=== PATIENT | female | born 2000 | race Caucasian/White ===

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

== ENCOUNTER 2019-03-29 09:52 | Emergency (ER) | payer MEDICAID, OTHER ==
[2019-03-29] MEDS ORDERED: SODIUM CHLORIDE 0.9% 1,000 ML IV STA (10:20)
[2019-03-29] MEDS: ONDANSETRON 4 MG/2 ML VIAL IVP STA ×2 (10:48→10:49)
[2019-03-29 10:56] LABS: Basophils % (A) 0 %; Eosinophils # (A) 0.3 k/uL (0-0.7); Eosinophils % (A) 3 %; HCT 41.2 % (34.0-46.0); HGB 12.8 gm/dL (11.4-16.0); Lymphocytes % (A) 19 %; MCH 27.4 pg (25.0-35.0); MCHC 31.1 g/dL (31.0-37.0); MCV 88.1 fL (80.0-100.0); Mean Platelet Volume 6.9; Monocytes # (A) 0.4 k/uL (0-1.0); Monocytes % (A) 4 %; Neutrophils # (A) 7.7 k/uL (1.3-7.7); Neutrophils % (A) 74 %; Platelet Count 280 k/uL (150-450); RBC 4.68 m/uL (3.80-5.40); RDW 13.1 % (11.5-15.5); WBC 10.5 k/uL (4.0-11.0)
[2019-03-29 11:07] LABS: ALT 20 U/L (9-52); AST 22 U/L (14-36); African American GFR (CKD) >90 (>60 ml/min/1.73 sqM); Albumin 4.5 g/dL (3.5-5.0); Alkaline Phosphatase 85 U/L (38-126); Anion Gap 10 mmol/L; Blood Urea Nitrogen 13 mg/dL (7-17); Calcium 9.8 mg/dL (8.4-10.2); Carbon Dioxide 27 mmol/L (22-30); Chloride 102 mmol/L (98-107); Glucose 112 mg/dL (74-99); Lithium 0.6 mmol/L; Potassium 4.3 mmol/L (3.5-5.1); Sodium 139 mmol/L (137-145); Total Bilirubin 0.1 mg/dL (0.2-1.3); Total Protein 7.8 g/dL (6.3-8.2)
[2019-03-29 11:11] LABS: Appearance,Urine Cloudy (Clear); Bilirubin,Urine 2+ (Negative); Blood,Urine Negative (Negative); Color,Urine Dark Brown; Glucose,Urine (UA) Negative (Negative); Ketones,Urine Negative (Negative); Leukocyte Esterase,Urine Negative (Negative); Mucus,Urine Moderate /hpf; Nitrite,Urine Positive (Negative); PH, Urine 5.5 (5.0-8.0); Protein,Urine Trace (Negative); RBC,Urine 1 /hpf (0-5); Specific Gravity,Urine 1.025 (1.001-1.035); Squamous Epithelial Cell,Urine 14 /hpf (0-4); WBC,Urine 7 /hpf (0-5)
--- NOTE | 2019-03-29 11:45 | ED ---
General Adult HPI - General Chief complaint: Nausea/Vomiting/Diarrhea Stated complaint: ABDOMINAL PAIN, VOMTING Source: patient Mode of arrival: ambulatory Limitations: no limitations - History of Present Illness Initial comments: The patient is a 18-year-old female past medical history bipolar disorder presents emergency room with reported nausea. She states she's had intermittent nausea for the past year. She has never been seen for it. She does think he may be secondary to her medications. States that every time she takes her lithium she does feel nauseated. She will occasionally have vomiting. States that she vomits approximately one per month. She does not take anything for her nausea. Denies any sick contacts or recent travel. No associated fevers or chills. Denies any associated abdominal pain. No hematemesis. Denies changes in her urination to include dysuria, hematuria or difficulty voiding. Denies any changes in her bowel movements including diarrhea, constipation, melanotic stools or hematochezia. Last her lithium was checked was 1 year ago. Denies any headaches or visual changes. There are no other alleviating, precipitating or modifying factors - Related Data Home Medications Medication Instructions Recorded Confirmed [place] Carbonate [[place] 300 mg PO HS 12/11/17 12/11/17 Carbonate ER] QUEtiapine [SEROquel] 50 mg PO HS 12/11/17 12/11/17 Previous Rx's Medication Instructions Recorded Cephalexin [Keflex] 500 mg PO Q12HR #14 cap 03/29/19 Ondansetron Odt [Zofran Odt] 4 mg PO Q8HR PRN #10 tab 03/29/19 Allergies Allergy/AdvReac Type Severity Reaction Status Date / Time No Known Allergies Allergy Verified 03/29/19 10:09 Review of Systems ROS Statement: Those systems with pertinent positive or pertinent negative responses have been documented in the HPI. ROS Other: All systems not noted in ROS Statement are negative. Past Medical History Past Medical History: No Reported History History of Any Multi-Drug Resistant Organisms: None Reported Past Surgical History: No Surgical Hx Reported Past Anesthesia/Blood Transfusion Reactions: No Reported Reaction Past Psychological History: ADD/ADHD, Bipolar Smoking Status: Never smoker Past Alcohol Use History: None Reported Past Drug Use History: None Reported - Past Family History Mother History Unknown: Yes General Exam Limitations: no limitations Course Vital Signs 03/29/19 03/29/19 10:07 11:56 Temperature 98.0 F 97.8 F Pulse Rate 76 69 Respiratory 18 16 Rate Blood Pressure 106/61 114/69 O2 Sat by Pulse 98 100 Oximetry Medical Decision Making - Medical Decision Making Upon arrival the patient is placed in room 20. A thorough history and physical exam was performed. Peripheral IV was established. The patient was given a liter bolus of normal saline. I did offer the patient something for nausea however she refuses stating she isn't nauseated at this time. Laboratory studies were conducted. CBC is unremarkable. CMP shows a glucose of 112. Urinalysis shows trace protein, positive nitrates, 2+ bilirubin, 7 white blood cells and moderate mucus. The patient does report UTI symptoms and states she is currently on an antibiotic from urgent care for urinary tract infection. She is unsure which medication it is. States she is on day 5 of 7. [place] level is therapeutic at 0.6. I did offer a KUB or a CT of the patient's abdomen and pelvis per patient refused. I discussed diagnosis, differential and treatment options. At this time the patient will be given a prescription for Keflex. She's take medications as directed for urinary tract infection. She is to follow up with the GI physician for evaluation of her chronic nausea. I also provided her with information for a primary care doctor. She'll be discharged home. If she has any new or worsening symptoms she should return to the emergency room. The patient was discharged home in stable condition - Lab Data Result diagrams: 03/29/19 10:44 03/29/19 10:44 Lab Results 03/29/19 03/29/19 03/29/19 Range/Units 10:44 10:44 10:51 WBC 10.5 (4.0-11.0) k/uL RBC 4.68 (3.80-5.40) m/uL Hgb 12.8 (11.4-16.0) gm/dL Hct 41.2 (34.0-46.0) % MCV 88.1 (80.0-100.0) fL MCH 27.4 (25.0-35.0) pg MCHC 31.1 (31.0-37.0) g/dL RDW 13.1 (11.5-15.5) % Plt Count 280 (150-450) k/uL Neutrophils % 74 % Lymphocytes % 19 % Monocytes % 4 % Eosinophils % 3 % Basophils % 0 % Neutrophils # 7.7 (1.3-7.7) k/uL Lymphocytes # 2.0 (1.0-4.8) k/uL Monocytes # 0.4 (0-1.0) k/uL Eosinophils # 0.3 (0-0.7) k/uL Basophils # 0.0 (0-0.2) k/uL Sodium 139 (137-145) mmol/L Potassium 4.3 (3.5-5.1) mmol/L Chloride 102 (98-107) mmol/L Carbon Dioxide 27 (22-30) mmol/L Anion Gap 10 mmol/L BUN 13 (7-17) mg/dL Creatinine 0.84 (0.52-1.04) mg/dL Est GFR (CKD-EPI)AfAm >90 (>60 ml/min/1.73 sqM) Est GFR (CKD-EPI)NonAf >90 (>60 ml/min/1.73 sqM) Glucose 112 H (74-99) mg/dL Calcium 9.8 (8.4-10.2) mg/dL Total Bilirubin 0.1 L (0.2-1.3) mg/dL AST 22 (14-36) U/L ALT 20 (9-52) U/L Alkaline Phosphatase 85 (38-126) U/L Total Protein 7.8 (6.3-8.2) g/dL Albumin 4.5 (3.5-5.0) g/dL Lipase 59 (23-300) U/L TSH 3.170 (0.465-4.680) mIU/L Urine Color Dark Brown Urine Appearance Cloudy H (Clear) Urine pH 5.5 (5.0-8.0) Ur Specific [place] 1.025 (1.001-1.035) Urine Protein Trace H (Negative) Urine Glucose (UA) Negative (Negative) Urine Ketones Negative (Negative) Urine Blood Negative (Negative) Urine Nitrite Positive H (Negative) Urine Bilirubin 2+ H (Negative) Urine Urobilinogen 8.0 (<2.0) mg/dL Ur Leukocyte Esterase Negative (Negative) Urine RBC 1 (0-5) /hpf Urine WBC 7 H (0-5) /hpf Ur Squamous Epith Cells 14 H (0-4) /hpf Urine Mucus Moderate H (None) /hpf Urine HCG, Qual (Not Detectd) [place] 0.6 mmol/L 03/29/19 Range/Units 10:51 WBC (4.0-11.0) k/uL RBC (3.80-5.40) m/uL Hgb (11.4-16.0) gm/dL Hct (34.0-46.0) % MCV (80.0-100.0) fL MCH (25.0-35.0) pg MCHC (31.0-37.0) g/dL RDW (11.5-15.5) % Plt Count (150-450) k/uL Neutrophils % % Lymphocytes % % Monocytes % % Eosinophils % % Basophils % % Neutrophils # (1.3-7.7) k/uL Lymphocytes # (1.0-4.8) k/uL Monocytes # (0-1.0) k/uL Eosinophils # (0-0.7) k/uL Basophils # (0-0.2) k/uL Sodium (137-145) mmol/L Potassium (3.5-5.1) mmol/L Chloride (98-107) mmol/L Carbon Dioxide (22-30) mmol/L Anion Gap mmol/L BUN (7-17) mg/dL Creatinine (0.52-1.04) mg/dL Est GFR (CKD-EPI)AfAm (>60 ml/min/1.73 sqM) Est GFR (CKD-EPI)NonAf (>60 ml/min/1.73 sqM) Glucose (74-99) mg/dL Calcium (8.4-10.2) mg/dL Total Bilirubin (0.2-1.3) mg/dL AST (14-36) U/L ALT (9-52) U/L Alkaline Phosphatase (38-126) U/L Total Protein (6.3-8.2) g/dL Albumin (3.5-5.0) g/dL Lipase (23-300) U/L TSH (0.465-4.680) mIU/L Urine Color Urine Appearance (Clear) Urine pH (5.0-8.0) Ur Specific [place] (1.001-1.035) Urine Protein (Negative) Urine Glucose (UA) (Negative) Urine Ketones (Negative) Urine Blood (Negative) Urine Nitrite (Negative) Urine Bilirubin (Negative) Urine Urobilinogen (<2.0) mg/dL Ur Leukocyte Esterase (Negative) Urine RBC (0-5) /hpf Urine WBC (0-5) /hpf Ur Squamous Epith Cells (0-4) /hpf Urine Mucus (None) /hpf Urine HCG, Qual Not Detected (Not Detectd) [place] mmol/L Disposition Clinical Impression: Nausea, Acute urinary tract infection Disposition: HOME SELF-CARE Condition: Stable Instructions (If sedation given, give patient instructions): Urinary Tract Infection in Women (ED), Acute Nausea and Vomiting (ED) Additional Instructions: Please follow-up with the primary care doctor in 2-4 days. Return to the emergency room for any new or worsening symptoms Prescriptions: Cephalexin [Keflex] 500 mg PO Q12HR #14 cap Ondansetron Odt [Zofran Odt] 4 mg PO Q8HR PRN #10 tab PRN Reason: Nausea Is patient prescribed a controlled substance at d/c from ED?: No Referrals: None,Stated [Primary Care Provider] - 1-2 days Ziggy Puente MD [Medical Doctor] - 1-2 days Liane Glaser MD [STAFF PHYSICIAN] - 1-2 days Time of Disposition: 11:45
[2019-03-29 11:58] VITALS: BP 114/69; PULSE 69; RESP 16; TEMP 97.8
== END 2019-03-29 11:58 | disposition home or self-care (01) ==
LOC: EC 09:52
DX: N39.0 Urinary tract infection, site not specified (principal); Z32.02 Encounter for pregnancy test, result negative; F31.9 Bipolar disorder, unspecified; Z79.899 Other long term (current) drug therapy
CPT/HCPCS: 36415; 80053; 80178; 81001; 81025; 83690; 84443; 85025; 96360; 99284

== ENCOUNTER 2019-05-29 16:34 | Observation (INO) | payer MEDICAID, OTHER ==
[2019-05-29] MEDS ORDERED: SODIUM CHLORIDE 0.9% 2,000 ML IV STA (16:48)
[2019-05-29] MEDS ORDERED: METOCLOPRAMIDE 5 MG/ML 2 ML VIAL IVP STA (16:51)
[2019-05-29] MEDS ORDERED: PEG 3350-NA SULF,BICARB,CL/KCL 4,000 ML BOTTLE PO ONE (17:06)
--- NOTE | 2019-05-29 17:11 | ED ---
Overdose HPI - General Chief Complaint: Overdose Stated Complaint: overdose Time Seen by Provider: 05/29/19 16:35 Source: EMS Mode of arrival: EMS Limitations: no limitations - History of Present Illness Initial Comments: The patient is a 18 old female with past medical history of bipolar disorder presents to the emergency room with acute overdose. The patient's mom is at bedside and helps provide history. She states that she got a text around 3:50 pm from her daughter stating that she had taken 28 tablets of lithium carbonate 300 mg. The patient took these in an attempt to harm herself. She does have a history of multiple inpatient hospitalizations. Previously overdosed on Abilify however no longer takes this medication. The patient's denies ingestion of any other prescribed medications or gsck-nwe-weozbuf medications. She does admit to nausea without vomiting. Denies headaches or visual changes. No chest pain or shortness of breath. Denies any abdominal pain. No concern for . Denies any homicidal ideations or hallucinations. There are no other alleviating, precipitating or modifying factors - Related Data Home Medications Medication Instructions Recorded Confirmed [place] Carbonate [[place] 300 mg PO HS 12/11/17 05/29/19 Carbonate ER] Allergies Allergy/AdvReac Type Severity Reaction Status Date / Time No Known Allergies Allergy Verified 05/29/19 19:07 Review of Systems ROS Statement: Those systems with pertinent positive or pertinent negative responses have been documented in the HPI. ROS Other: All systems not noted in ROS Statement are negative. Past Medical History Past Medical History: No Reported History Additional Past Medical History / Comment(s): prior overdose History of Any Multi-Drug Resistant Organisms: None Reported Past Surgical History: No Surgical Hx Reported Past Anesthesia/Blood Transfusion Reactions: No Reported Reaction Past Psychological History: ADD/ADHD, Bipolar Smoking Status: Never smoker Past Alcohol Use History: Occasional Past Drug Use History: Marijuana - Past Family History Mother History Unknown: Yes General Exam Limitations: no limitations General appearance: alert, in no apparent distress Head exam: Present: atraumatic, normocephalic, normal inspection Eye exam: Present: normal appearance, PERRL, EOMI. Absent: scleral icterus, conjunctival injection, periorbital swelling ENT exam: Present: normal exam, mucous membranes moist Neck exam: Present: normal inspection. Absent: tenderness, meningismus, lymphadenopathy Respiratory exam: Present: normal lung sounds bilaterally. Absent: respiratory distress, wheezes, rales, rhonchi, stridor Cardiovascular Exam: Present: regular rate, normal rhythm, normal heart sounds. Absent: systolic murmur, diastolic murmur, rubs, gallop, clicks GI/Abdominal exam: Present: soft, normal bowel sounds. Absent: distended, tenderness, guarding, rebound, rigid Extremities exam: Present: normal inspection, full ROM, normal capillary refill. Absent: tenderness, pedal edema, joint swelling, calf tenderness Back exam: Present: normal inspection Neurological exam: Present: alert, oriented X3, CN II-XII intact Psychiatric exam: Present: depressed Skin exam: Present: warm, dry, intact, normal color. Absent: rash Course Vital Signs 05/29/19 05/29/19 05/29/19 16:36 18:07 18:44 Temperature 98.8 F Pulse Rate 94 75 78 Respiratory 20 18 18 Rate Blood Pressure 136/83 116/78 123/70 O2 Sat by Pulse 96 100 98 Oximetry Medical Decision Making - Medical Decision Making Upon arrival the patient is placed into room 2. A thorough history and physical exam is performed. Peripheral IV was established the patient was given a 2 L bolus of normal saline. She is also given 10 mg of Reglan for nausea. A 12- lead EKG was performed. Laboratory studies were conducted. CBC is unremarkable. CMP shows a glucose of 104 and a calcium of 10.3. UA shows 1+ ketones. HCG is negative. UDS is negative. [place] is 1.1. Salicylates and acetaminophen are negative. I discussed the results with the patient. She does have a couple episodes of emesis. We did call poison control who recommended EKGs every 6 hours, lites and lithium levels every 4 hours. He also recommended GoLYTELY. I did order the medication the patient is able to start drinking it. The patient will be admitted to the hospital. I will consult psychiatry for evaluation when she is medically clear. A call discuss the case with Faiza from [facility] who accepted admission. She remained alert in the exam room. No sign of seizures or sedation. Patient was then transferred to floor in stable condition - Lab Data Result diagrams: 05/30/19 04:00 05/31/19 06:42 Lab Results 05/29/19 05/29/19 Range/Units 16:55 16:55 WBC 7.6 (4.0-11.0) k/uL RBC 4.88 (3.80-5.40) m/uL Hgb 13.7 (11.4-16.0) gm/dL Hct 41.2 (34.0-46.0) % MCV 84.4 (80.0-100.0) fL MCH 28.2 (25.0-35.0) pg MCHC 33.4 (31.0-37.0) g/dL RDW 13.2 (11.5-15.5) % Plt Count 275 (150-450) k/uL Neutrophils % 58 % Lymphocytes % 32 % Monocytes % 5 % Eosinophils % 3 % Basophils % 0 % Neutrophils # 4.5 (1.3-7.7) k/uL Lymphocytes # 2.4 (1.0-4.8) k/uL Monocytes # 0.4 (0-1.0) k/uL Eosinophils # 0.2 (0-0.7) k/uL Basophils # 0.0 (0-0.2) k/uL Sodium 138 (137-145) mmol/L Potassium 4.3 (3.5-5.1) mmol/L Chloride 107 (98-107) mmol/L Carbon Dioxide 21 L (22-30) mmol/L Anion Gap 10 mmol/L BUN 10 (7-17) mg/dL Creatinine 0.60 (0.52-1.04) mg/dL Est GFR (CKD-EPI)AfAm >90 (>60 ml/min/1.73 sqM) Est GFR (CKD-EPI)NonAf >90 (>60 ml/min/1.73 sqM) Glucose 104 H (74-99) mg/dL Calcium 10.3 H (8.4-10.2) mg/dL Phosphorus 3.4 (2.5-4.5) mg/dL Magnesium 1.9 (1.6-2.3) mg/dL Total Bilirubin 0.5 (0.2-1.3) mg/dL AST 39 H (14-36) U/L ALT 33 (4-34) U/L Alkaline Phosphatase 72 (38-126) U/L Creatine Kinase 115 (30-135) U/L Total Protein 8.0 (6.3-8.2) g/dL Albumin 4.8 (3.5-5.0) g/dL TSH 2.630 (0.465-4.680) mIU/L Salicylates <1.0 mg/dL Acetaminophen <10.0 ug/mL [place] 1.1 mmol/L - EKG Data EKG Comments: EKG demonstrates a normal sinus rhythm with a ventricular rate of 83. RI interval 1:30. QRS E4. QTC of 434. No acute ST segment elevations or depressions concerning for ischemic change. No widened QRS Disposition Clinical Impression: Intentional lithium overdose, Suicide attempt, Depression Disposition: ADMITTED IP TO THIS HOSP Condition: Stable Is patient prescribed a controlled substance at d/c from ED?: No Decision to Admit Reason: Admit from EC Decision Date: 05/29/19 Decision Time: 18:07
[2019-05-29 17:32] LABS: ALT 33 U/L (4-34); AST 39 U/L (14-36); Acetaminophen <10.0 ug/mL; African American GFR (CKD) >90 (>60 ml/min/1.73 sqM); Albumin 4.8 g/dL (3.5-5.0); Alkaline Phosphatase 72 U/L (38-126); Anion Gap 10 mmol/L; Blood Urea Nitrogen 10 mg/dL (7-17); Calcium 10.3 mg/dL (8.4-10.2); Carbon Dioxide 21 mmol/L (22-30); Chloride 107 mmol/L (98-107); Creatine Kinase 115 U/L (30-135); Glucose 104 mg/dL (74-99); Lithium 1.1 mmol/L; Magnesium 1.9 mg/dL (1.6-2.3); Non-African American GFR(CKD) >90 (>60 ml/min/1.73 sqM); Phosphorus 3.4 mg/dL (2.5-4.5); Potassium 4.3 mmol/L (3.5-5.1); Salicylate <1.0 mg/dL; Sodium 138 mmol/L (137-145); Total Bilirubin 0.5 mg/dL (0.2-1.3)
[2019-05-29 17:39] LABS: Basophils % (A) 0 %; Eosinophils # (A) 0.2 k/uL (0-0.7); Eosinophils % (A) 3 %; HCT 41.2 % (34.0-46.0); HGB 13.7 gm/dL (11.4-16.0); Lymphocytes # (A) 2.4 k/uL (1.0-4.8); Lymphocytes % (A) 32 %; MCH 28.2 pg (25.0-35.0); MCHC 33.4 g/dL (31.0-37.0); MCV 84.4 fL (80.0-100.0); Monocytes # (A) 0.4 k/uL (0-1.0); Monocytes % (A) 5 %; Neutrophils # (A) 4.5 k/uL (1.3-7.7); Neutrophils % (A) 58 %; Platelet Count 275 k/uL (150-450); RBC 4.88 m/uL (3.80-5.40); RDW 13.2 % (11.5-15.5); WBC 7.6 k/uL (4.0-11.0)
[2019-05-29] MEDS ORDERED: NALOXONE 0.4 MG/ML 1 ML VIAL IV PRN (18:08)
[2019-05-29 18:46] LABS: Appearance,Urine Clear (Clear); Bilirubin,Urine Negative (Negative); Blood,Urine Negative (Negative); Color,Urine Yellow; Glucose,Urine (UA) Negative (Negative); Ketones,Urine 1+ (Negative); Leukocyte Esterase,Urine Negative (Negative); Nitrite,Urine Negative (Negative); PH, Urine 7.5 (5.0-8.0); Protein,Urine Negative (Negative); Specific Gravity,Urine 1.011 (1.001-1.035); Urobilinogen,Urine <2.0 mg/dL (<2.0)
[2019-05-29 18:57] LABS: Amphetamine Screen,Urine Not Detected (NotDetected); Barbiturate Screen,Urine Not Detected (NotDetected); Benzodiazepines Screen,Urine Not Detected (NotDetected); Cocaine Screen,Urine Not Detected (NotDetected); Methadone Screen, Urine Not Detected (NotDetected); Opiate Screen,Urine Not Detected (NotDetected); Oxycodone Screen, Urine Not Detected (NotDetected); Phencyclidine Screen,Urine Not Detected (NotDetected); Tricyclic Antidepressant,Urine Not Detected (NotDetected); Urn Cannabinoid Scrn Not Detected (NotDetected)
[2019-05-29 20:37] LABS: Glucose,Whole Blood 89 mg/dL (75-99)
[2019-05-29 22:18] LABS: Lithium 0.4 mmol/L
[2019-05-29] MEDS: SODIUM CHLORIDE 0.9% 1,000 ML IV SCH (23:33)
[2019-05-30 00:27] LABS: Lithium 0.3 mmol/L; Potassium 4.1 mmol/L (3.5-5.1)
[2019-05-30] MEDS: SODIUM CHLORIDE 0.9% 1,000 ML IV SCH ×3 (02:40→19:39)
[2019-05-30 04:12] LABS: Basophils % (A) 0 %; Eosinophils # (A) 0.3 k/uL (0-0.7); Eosinophils % (A) 4 %; HCT 36.9 % (34.0-46.0); HGB 11.8 gm/dL (11.4-16.0); Lymphocytes % (A) 42 %; MCH 27.9 pg (25.0-35.0); MCV 87.1 fL (80.0-100.0); Mean Platelet Volume 8.3; Monocytes # (A) 0.5 k/uL (0-1.0); Monocytes % (A) 7 %; Neutrophils # (A) 3.3 k/uL (1.3-7.7); Neutrophils % (A) 45 %; Platelet Count 215 k/uL (150-450); RBC 4.23 m/uL (3.80-5.40); RDW 13.5 % (11.5-15.5); WBC 7.3 k/uL (4.0-11.0)
[2019-05-30 04:20] LABS: ALT 28 U/L (4-34); AST 33 U/L (14-36); African American GFR (CKD) >90 (>60 ml/min/1.73 sqM); Albumin 3.2 g/dL (3.5-5.0); Alkaline Phosphatase 48 U/L (38-126); Anion Gap 5 mmol/L; Blood Urea Nitrogen 8 mg/dL (7-17); Calcium 8.9 mg/dL (8.4-10.2); Carbon Dioxide 24 mmol/L (22-30); Chloride 112 mmol/L (98-107); Glucose 99 mg/dL (74-99); Lithium 0.3 mmol/L; Non-African American GFR(CKD) >90 (>60 ml/min/1.73 sqM); Potassium 3.9 mmol/L (3.5-5.1); Sodium 141 mmol/L (137-145); Total Bilirubin 0.3 mg/dL (0.2-1.3); Total Protein 5.8 g/dL (6.3-8.2)
[2019-05-30 09:17] LABS: Anion Gap 6 mmol/L; Carbon Dioxide 24 mmol/L (22-30); Chloride 111 mmol/L (98-107); Lithium <0.2 mmol/L; Potassium 4.4 mmol/L (3.5-5.1); Sodium 141 mmol/L (137-145)
[2019-05-30 12:22] LABS: Anion Gap 6 mmol/L; Carbon Dioxide 26 mmol/L (22-30); Chloride 110 mmol/L (98-107); Lithium <0.2 mmol/L; Sodium 142 mmol/L (137-145)
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
[2019-05-30 14:34] VITALS: RESP 16
--- NOTE | 2019-05-30 14:55 | P.HPIM ---
History of Present Illness this is a pleasant 18 years old female with past medical history of bipolar disorder, substance abuse. He presents with suicidal attempt. Patient ingested 28 tablets of lithium and attention to find her life. She contacted her mother brought her to the hospital.after she ingested pills she started vomiting, followed by some tremor in her hands. However she denies confusion or ataxia, femoral EKG were done to monitor QT.. No other GI symptoms like abdominal pain or diarrhea. Patient admitted to the hospital with telemetry on the presentation lithium level was 1.1, followed by 0.4, and thereafter persistently was low for several hours less than 0.0 to. Review of Systems CONSTITUTIONAL: No fever, no malaise, no fatigue. HEENT: No recent visual problems or hearing problems. Denied any sore throat. CARDIOVASCULAR: No orthopnea, PND, no palpitations, no syncope. PULMONARY: No shortness of breath, no cough, no hemoptysis. GASTROINTESTINAL: No diarrhea, no nausea, no vomiting, no abdominal pain. Normoactive bowel sounds. NEUROLOGICAL: No headaches, no weakness, no numbness. HEMATOLOGICAL: Denies any bleeding or petechiae. GENITOURINARY: Denies any burning micturition, frequency, or urgency. MUSCULOSKELETAL/RHEUMATOLOGICAL: Denies any joint pain, swelling, or any muscle pain. ENDOCRINE: Denies any polyuria or polydipsia. Past Medical History Past Medical History: No Reported History Additional Past Medical History / Comment(s): prior overdose History of Any Multi-Drug Resistant Organisms: None Reported Past Surgical History: No Surgical Hx Reported Past Anesthesia/Blood Transfusion Reactions: No Reported Reaction Past Psychological History: ADD/ADHD, Bipolar Smoking Status: Never smoker Past Alcohol Use History: Occasional Past Drug Use History: Marijuana - Past Family History Mother History Unknown: Yes Medications and Allergies Home Medications Medication Instructions Recorded Confirmed Type [place] Carbonate [[place] 300 mg PO HS 12/11/17 05/29/19 History Carbonate ER] Allergies Allergy/AdvReac Type Severity Reaction Status Date / Time No Known Allergies Allergy Verified 05/29/19 19:07 Physical Exam Vitals: Vital Signs Temp Pulse Pulse Resp BP BP Pulse Ox 05/30/19 14:33 98.3 F 57 L 16 99/57 98 05/30/19 07:00 98.4 F 71 18 109/69 98 05/30/19 00:32 98.1 F 74 14 110/60 98 05/29/19 20:03 97.8 F 69 14 112/69 100 05/29/19 18:44 78 18 123/70 98 05/29/19 18:07 75 18 116/78 100 05/29/19 16:36 98.8 F 94 20 136/83 96 Intake and Output 05/29/19 05/30/19 05/30/19 22:59 06:59 14:59 Intake Total 1525 361 Balance 1525 361 Intake: Intake, IV Titration 1525 Amount Sodium Chloride 0.9% 1, 1525 000 ml @ 150 mls/hr IV . Q6H40M [facility] Rx#:[id number] Oral 361 Other: Weight 62.142 kg GENERAL: The patient is alert and oriented x3, not in any acute distress. Well developed, well nourished. HEENT: Pupils are round and equally reacting to light. EOMI. No scleral icterus. No conjunctival pallor. Normocephalic, atraumatic. No pharyngeal erythema. No thyromegaly. CARDIOVASCULAR: S1 and S2 present. No murmurs, rubs, or gallops. PULMONARY: Chest is clear to auscultation, no wheezing or crackles. ABDOMEN: Soft, nontender, nondistended, normoactive bowel sounds. No palpable organomegaly. MUSCULOSKELETAL: No joint swelling or deformity. EXTREMITIES: No cyanosis, clubbing, or pedal edema. NEUROLOGICAL: Gross neurological examination did not reveal any focal deficits. no nystagmus, no ataxia SKIN: No rashes. No petechiae Results CBC & Chem 7: 05/30/19 04:00 05/30/19 12:01 Labs: Abnormal Lab Results - Last 24 Hours (Table) 05/29/19 05/29/19 05/29/19 Range/Units 16:55 18:39 21:34 Chloride 109 H (98-107) mmol/L Carbon Dioxide 21 L (22-30) mmol/L Glucose 104 H (74-99) mg/dL Calcium 10.3 H (8.4-10.2) mg/dL AST 39 H (14-36) U/L Total Protein (6.3-8.2) g/dL Albumin (3.5-5.0) g/dL Urine Ketones 1+ H (Negative) 1205/30/19 05/30/19 Range/Units 23:57 04:00 08:43 Chloride 111 H 112 H 111 H (98-107) mmol/L Carbon Dioxide (22-30) mmol/L Glucose (74-99) mg/dL Calcium (8.4-10.2) mg/dL AST (14-36) U/L Total Protein 5.8 L (6.3-8.2) g/dL Albumin 3.2 L (3.5-5.0) g/dL Urine Ketones (Negative) 05/30/19 Range/Units 12:01 Chloride 110 H (98-107) mmol/L Carbon Dioxide (22-30) mmol/L Glucose (74-99) mg/dL Calcium (8.4-10.2) mg/dL AST (14-36) U/L Total Protein (6.3-8.2) g/dL Albumin (3.5-5.0) g/dL Urine Ketones (Negative) Thrombosis Risk Factor Assmnt - Choose All That Apply Any of the Below Risk Factors Present?: No Other Risk Factors: No Other congenital or acquired thrombophilia - If yes, enter type in comment: No Thrombosis Risk Factor Assessment Level: Very Low Risk Assessment and Plan Assessment: [place] overdose and toxicity bipolar disorder suicidal ideation and attempt Plan: this is a pleasant 18 years old female who presents with lithium overdose.we'll check TSH, we'll check another [place] TSH, repeat EKG. Suicidal precautions. Psychiatric input is appreciated patient will need psychiatric admission was medically is appeared. Continue with sternal at bedside. Patient cannot leave AMA. Continue with telemetry.discontinue IV fluids.-monitor sodium off fluid Labs and medication were reviewed.. Continue same treatment. Continue with symptomatic treatment. Resume home medication. Monitor lytes and vitals. DVT and GI prophylaxis. Further recommendations of the clinical course of the patient DVT prophylaxis: Subcutaneous Lovenox GI Prophylaxis: Pepcid Prognosis is guarded
[2019-05-30 17:08] LABS: Potassium 4.3 mmol/L (3.5-5.1)
[2019-05-30 17:22] LABS: HCG,Qualitative Serum Not Detected
[2019-05-30] MEDS: ENOXAPARIN 40 MG/0.4 ML SYRINGE SQ SCH (19:29)
[2019-05-30] MEDS: FAMOTIDINE 20 MG/2 ML VIAL IV SCH (19:58)
[2019-05-31 07:29] LABS: Potassium 4.1 mmol/L (3.5-5.1)
[2019-05-31] MEDS: FAMOTIDINE 20 MG/2 ML VIAL IV SCH (08:37)
[2019-05-31] MEDS: ENOXAPARIN 40 MG/0.4 ML SYRINGE SQ SCH (08:37)
[2019-05-31 14:27] VITALS: TEMP 97.7
[2019-05-31 19:33] VITALS: BP 105/67; PULSE 93
[2019-05-31] MEDS ORDERED: FAMOTIDINE 20 MG TAB PO SCH (21:00)
--- NOTE | 2019-06-01 07:50 | P.PN ---
Subjective Progress Note Date: 05/31/19 Principal diagnosis: this is a pleasant 18 years old female with past medical history of bipolar disorder, substance abuse. He presents with suicidal attempt. Patient ingested 28 tablets of lithium and attention to find her life. She contacted her mother brought her to the hospital.after she ingested pills she started vomiting, followed by some tremor in her hands. However she denies confusion or ataxia, femoral EKG were done to monitor QT.. No other GI symptoms like abdominal pain or diarrhea. Patient admitted to the hospital with telemetry on the presentation lithium level was 1.1, followed by 0.4, and thereafter persistently was low for several hours less than 0.0 to. 05/31/2019 Patient is lying in bed with sitter at the bedside. Patient is awaiting inpatient psych placement for suicide attempt. Mentation is baseline. Patient is very quiet and states that she is tired. Social work is working on placement. Patient is petitioned and medical certificate of clearance has been done. Will continue with patient sitter and suicide precautions at this time. Will continue to monitor closely. Objective - Vital Signs Vital signs: Vital Signs Temp 97.7 F 05/31/19 19:32 Pulse 93 05/31/19 19:32 Resp 16 05/31/19 19:32 BP 105/67 05/31/19 19:32 Pulse Ox 97 05/31/19 19:32 Intake & Output 05/31/19 05/31/19 06/01/19 06:59 18:59 06:59 Intake Total 1080 1080 Balance 1080 1080 Intake: Oral 1080 1080 Other: # Voids 3 - Exam GENERAL: The patient is alert and oriented x3, not in any acute distress. Well developed, well nourished. Temp is 97.7F, pulse is 91, resp are 16, blood pressure is 108/70, 02 is 94% on room air. HEENT: Pupils are round and equally reacting to light. EOMI. No scleral icterus. No conjunctival pallor. Normocephalic, atraumatic. No pharyngeal erythema. No thyromegaly. CARDIOVASCULAR: S1 and S2 present. No murmurs, rubs, or gallops. PULMONARY: Chest is clear to auscultation, no wheezing or crackles. ABDOMEN: Soft, nontender, nondistended, normoactive bowel sounds. No palpable or ganomegaly. MUSCULOSKELETAL: No joint swelling or deformity. EXTREMITIES: No cyanosis, clubbing, or pedal edema. NEUROLOGICAL: Gross neurological examination did not reveal any focal deficits. no nystagmus, no ataxia SKIN: No rashes. No petechiae - Labs CBC & Chem 7: 05/30/19 04:00 05/31/19 06:42 Labs: Abnormal Lab Results - Last 24 Hours (Table) 05/31/19 Range/Units 06:42 Chloride 109 H (98-107) mmol/L Assessment and Plan Assessment: [place] overdose and toxicity bipolar disorder suicidal ideation and attempt DVT prophylaxis: Subcutaneous Lovenox GI Prophylaxis: Pepcid Plan: Recommend to continue current medications, management, and symptomatic treatment. Continue with patient sitter for suicide precautions. Will continue to monitor closely. Prognosis is guarded. Further recommendations to follow. Social work is working on finding placement at an inpatient psychiatric facility at this time.
--- NOTE | 2019-06-01 22:07 | DS ---
DISCHARGE SUMMARY DATE OF SERVICE: 06/01/2019. FINAL DIAGNOSES: 1. [place] overdose and toxicity. 2. Bipolar disorder. 3. Suicidal ideation and attempt. 4. Deep vein thrombosis prophylaxis. 5. Gastrointestinal prophylaxis. DISCHARGE DISPOSITION: The patient will be discharged in stable condition with guarded prognosis. The patient will be transferred to inpatient psych facility. HISTORY OF PRESENT ILLNESS: This 18-year-old woman with past medical history of multiple medical problems was admitted with lithium overdose and toxicity, seen by psychiatry. Recommended inpatient psych consultation. Patient was transferred to inpatient psych at this time. On exam, vitals are stable. Cardiovascular system: S1, S2. Abdomen soft. Nervous System: No focal deficits. DISCHARGE ADVICE AND MEDICATIONS: 1. Diet is cardiac diet. 2. Activity limited until followup. 3. Hold lithium for now. 4. Continue to monitor. 5. Followup with primary physician and psychiatrist in the outpatient setting. MMNATYL / MOREN: [id number] /
== END 2019-06-01 00:30 ==
LOC: EC 16:34 → 4MS4W 18:08 → 4SSUR 18:23
PROVIDERS: ADMIT Hospitalist; ATTEND Hospitalist
DX: T43.592A Poisoning by other antipsychotics and neuroleptics, intentional self-harm, initial encounter (principal); F31.9 Bipolar disorder, unspecified
CPT/HCPCS: 96376; 96372; 96375; 82075; 96361; 96374; 99285; 36415; 93005 ×3; 80051 ×3; 80053 ×2; 84443 ×2; 82550; 80178 ×2; 83735; 84100; 85025 ×2; 81003; 81025; 84703; 80306; 83520; 80329; G0378 ×4; J2765; J1650

== ENCOUNTER 2019-06-18 12:10 | Emergency (ER) | payer MEDICAID, OTHER ==
[2019-06-18 12:22] VITALS: RESP 18; TEMP 98
[2019-06-18] MEDS ORDERED: PANTOPRAZOLE 40 MG/10 ML VIAL IVP STA (13:12)
[2019-06-18] MEDS ORDERED: SODIUM CHLORIDE 0.9% 1,000 ML IV STA (13:12)
[2019-06-18] MEDS ORDERED: ONDANSETRON 4 MG/2 ML VIAL IVP STA (13:12)
[2019-06-18] MEDS ORDERED: DICYCLOMINE 10 MG/ML 2 ML AMP IM STA (13:12)
--- NOTE | 2019-06-18 13:22 | ED ---
Abdominal Pain HPI - General Chief Complaint: Abdominal Pain Stated Complaint: nausea/vomiting Time Seen by Provider: 06/18/19 12:45 Source: patient Mode of arrival: ambulatory Limitations: no limitations - History of Present Illness Initial Comments: Patient is a 18-year-old female presenting to the emergency department with a chief complaint of nausea vomiting and abdominal pain. Patient states that she was admitted to the hospital 19 days ago for a lithium overdose. Patient reports that she was discharged she was asymptomatic until about 5 days ago she developed nausea with multiple episodes of nonbilious, nonbloody vomiting. Patient reports she is nauseous whenever she starts to eat. She is able to tolerate fluids. Patient reports diffuse abdominal cramping. She states her last menstrual period was about 3 weeks ago but it was interrupted due to the lithium ingestion and she was not able to take her control as usual after she was admitted. Patient denies any diarrhea or constipation. Denies vaginal or urinary symptoms. Denies fevers night sweats or chills. Denies any back pain abdominal pain. - Related Data Home Medications Medication Instructions Recorded Confirmed [place] Carbonate [[place] 300 mg PO HS 12/11/17 12 Carbonate ER] Previous Rx's Medication Instructions Recorded Ondansetron Odt [Zofran Odt] 4 mg PO Q8HR PRN #14 tab 06/18/19 Allergies Allergy/AdvReac Type Severity Reaction Status Date / Time No Known Allergies Allergy Verified 06/18/19 12:19 Review of Systems ROS Statement: Those systems with pertinent positive or pertinent negative responses have been documented in the HPI. ROS Other: All systems not noted in ROS Statement are negative. Past Medical History Past Medical History: No Reported History Additional Past Medical History / Comment(s): prior overdose History of Any Multi-Drug Resistant Organisms: None Reported Past Surgical History: No Surgical Hx Reported Past Anesthesia/Blood Transfusion Reactions: No Reported Reaction Past Psychological History: ADD/ADHD, Bipolar Smoking Status: Never smoker Past Alcohol Use History: None Reported, Occasional Past Drug Use History: Marijuana - Past Family History Mother History Unknown: Yes General Exam Limitations: no limitations General appearance: alert, in no apparent distress Head exam: Present: atraumatic, normocephalic, normal inspection Eye exam: Present: normal appearance, PERRL, EOMI Pupils: Present: normal accommodation ENT exam: Present: normal exam, normal oropharynx, mucous membranes moist, TM's normal bilaterally, normal external ear exam Neck exam: Present: normal inspection, full ROM Respiratory exam: Present: normal lung sounds bilaterally Cardiovascular Exam: Present: regular rate, normal rhythm, normal heart sounds GI/Abdominal exam: Present: soft, normal bowel sounds. Absent: distended, tenderness, guarding, rebound Extremities exam: Present: normal inspection, full ROM, normal capillary refill Back exam: Present: normal inspection, full ROM Neurological exam: Present: alert, oriented X3 Psychiatric exam: Present: normal affect, normal mood Skin exam: Present: warm, dry, intact, normal color Course Vital Signs 06/18/19 06/18/19 12:19 15:17 Temperature 98 F 98 F Pulse Rate 74 68 Respiratory 18 18 Rate Blood Pressure 93/64 121/69 O2 Sat by Pulse 99 100 Oximetry Medical Decision Making - Medical Decision Making Patient is a 18-year-old female presenting to emergency Department with a chief complaint of nausea vomiting. Symptoms of and I will for about 5 days. Patient also reports some abdominal cramping. On exam, no abdominal tenderness noted. No CVA tenderness. UA shows +1 ketones secondary to volume loss and dehydration.. Patient is not . Patient given fluids, antiemetics, Jose tyl and Protonix. Reevaluation patient reports improvement in his symptoms. I suspect the patient has gastritis causing to have the nausea with 3 episodes of vomiting. Patient will be discharged with antiemetics. Strict return parameters were thoroughly discussed with patient is understanding and agreeable. Patient will follow with primary care. Case discussed with physician. - Lab Data Result diagrams: 06/18/19 13:40 06/18/19 13:40 Lab Results 06/18/19 06/18/19 06/18/19 Range/Units 13:40 13:40 13:45 WBC 7.0 (4.0-11.0) k/uL RBC 4.36 (3.80-5.40) m/uL Hgb 12.3 (11.4-16.0) gm/dL Hct 38.0 (34.0-46.0) % MCV 87.2 (80.0-100.0) fL MCH 28.3 (25.0-35.0) pg MCHC 32.4 (31.0-37.0) g/dL RDW 13.4 (11.5-15.5) % Plt Count 292 (150-450) k/uL Neutrophils % 61 % Lymphocytes % 29 % Monocytes % 6 % Eosinophils % 2 % Basophils % 0 % Neutrophils # 4.3 (1.3-7.7) k/uL Lymphocytes # 2.0 (1.0-4.8) k/uL Monocytes # 0.4 (0-1.0) k/uL Eosinophils # 0.1 (0-0.7) k/uL Basophils # 0.0 (0-0.2) k/uL Sodium 140 (137-145) mmol/L Potassium 5.0 (3.5-5.1) mmol/L Chloride 107 (98-107) mmol/L Carbon Dioxide 25 (22-30) mmol/L Anion Gap 8 mmol/L BUN 11 (7-17) mg/dL Creatinine 0.68 (0.52-1.04) mg/dL Est GFR (CKD-EPI)AfAm >90 (>60 ml/min/1.73 sqM) Est GFR (CKD-EPI)NonAf >90 (>60 ml/min/1.73 sqM) Glucose 89 (74-99) mg/dL Calcium 9.4 (8.4-10.2) mg/dL Total Bilirubin 0.5 (0.2-1.3) mg/dL AST 40 H (14-36) U/L ALT 27 (4-34) U/L Alkaline Phosphatase 68 (38-126) U/L Total Protein 6.9 (6.3-8.2) g/dL Albumin 4.1 (3.5-5.0) g/dL Amylase 43 (30-110) U/L Lipase 51 (23-300) U/L Urine Color Yellow Urine Appearance Cloudy H (Clear) Urine pH 7.0 (5.0-8.0) Ur Specific [place] 1.026 (1.001-1.035) Urine Protein 1+ H (Negative) Urine Glucose (UA) Negative (Negative) Urine Ketones 1+ H (Negative) Urine Blood Negative (Negative) Urine Nitrite Negative (Negative) Urine Bilirubin Negative (Negative) Urine Urobilinogen 3.0 (<2.0) mg/dL Ur Leukocyte Esterase Trace H (Negative) Urine RBC 2 (0-5) /hpf Urine WBC 3 (0-5) /hpf Ur Squamous Epith Cells 28 H (0-4) /hpf Urine Bacteria Rare H (None) /hpf Urine Mucus Many H (None) /hpf Urine HCG, Qual (Not Detectd) [place] <0.2 mmol/L 06/18/19 Range/Units 13:45 WBC (4.0-11.0) k/uL RBC (3.80-5.40) m/uL Hgb (11.4-16.0) gm/dL Hct (34.0-46.0) % MCV (80.0-100.0) fL MCH (25.0-35.0) pg MCHC (31.0-37.0) g/dL RDW (11.5-15.5) % Plt Count (150-450) k/uL Neutrophils % % Lymphocytes % % Monocytes % % Eosinophils % % Basophils % % Neutrophils # (1.3-7.7) k/uL Lymphocytes # (1.0-4.8) k/uL Monocytes # (0-1.0) k/uL Eosinophils # (0-0.7) k/uL Basophils # (0-0.2) k/uL Sodium (137-145) mmol/L Potassium (3.5-5.1) mmol/L Chloride (98-107) mmol/L Carbon Dioxide (22-30) mmol/L Anion Gap mmol/L BUN (7-17) mg/dL Creatinine (0.52-1.04) mg/dL Est GFR (CKD-EPI)AfAm (>60 ml/min/1.73 sqM) Est GFR (CKD-EPI)NonAf (>60 ml/min/1.73 sqM) Glucose (74-99) mg/dL Calcium (8.4-10.2) mg/dL Total Bilirubin (0.2-1.3) mg/dL AST (14-36) U/L ALT (4-34) U/L Alkaline Phosphatase (38-126) U/L Total Protein (6.3-8.2) g/dL Albumin (3.5-5.0) g/dL Amylase (30-110) U/L Lipase (23-300) U/L Urine Color Urine Appearance (Clear) Urine pH (5.0-8.0) Ur Specific [place] (1.001-1.035) Urine Protein (Negative) Urine Glucose (UA) (Negative) Urine Ketones (Negative) Urine Blood (Negative) Urine Nitrite (Negative) Urine Bilirubin (Negative) Urine Urobilinogen (<2.0) mg/dL Ur Leukocyte Esterase (Negative) Urine RBC (0-5) /hpf Urine WBC (0-5) /hpf Ur Squamous Epith Cells (0-4) /hpf Urine Bacteria (None) /hpf Urine Mucus (None) /hpf Urine HCG, Qual Not Detected (Not Detectd) [place] mmol/L Disposition Clinical Impression: Gastritis, Nausea & vomiting Disposition: HOME SELF-CARE Condition: Stable Instructions (If sedation given, give patient instructions): Gastritis (DC) Additional Instructions: Please follow with primary care. Please return to emergency department if symptoms worsen. Take prescribed medication as directed Prescriptions: Ondansetron Odt [Zofran Odt] 4 mg PO Q8HR PRN #14 tab PRN Reason: Nausea Is patient prescribed a controlled substance at d/c from ED?: No Referrals: None,Stated [Primary Care Provider] - 1-2 days Time of Disposition: 14:46
[2019-06-18 13:53] LABS: Basophils % (A) 0 %; Eosinophils # (A) 0.1 k/uL (0-0.7); Eosinophils % (A) 2 %; HGB 12.3 gm/dL (11.4-16.0); Lymphocytes % (A) 29 %; MCH 28.3 pg (25.0-35.0); MCHC 32.4 g/dL (31.0-37.0); MCV 87.2 fL (80.0-100.0); Monocytes # (A) 0.4 k/uL (0-1.0); Monocytes % (A) 6 %; Neutrophils # (A) 4.3 k/uL (1.3-7.7); Neutrophils % (A) 61 %; Platelet Count 292 k/uL (150-450); RBC 4.36 m/uL (3.80-5.40); RDW 13.4 % (11.5-15.5)
[2019-06-18 14:04] LABS: ALT 27 U/L (4-34); AST 40 U/L (14-36); African American GFR (CKD) >90 (>60 ml/min/1.73 sqM); Albumin 4.1 g/dL (3.5-5.0); Alkaline Phosphatase 68 U/L (38-126); Amylase 43 U/L (30-110); Anion Gap 8 mmol/L; Blood Urea Nitrogen 11 mg/dL (7-17); Calcium 9.4 mg/dL (8.4-10.2); Carbon Dioxide 25 mmol/L (22-30); Chloride 107 mmol/L (98-107); Glucose 89 mg/dL (74-99); Lithium <0.2 mmol/L; Non-African American GFR(CKD) >90 (>60 ml/min/1.73 sqM); Sodium 140 mmol/L (137-145); Total Bilirubin 0.5 mg/dL (0.2-1.3); Total Protein 6.9 g/dL (6.3-8.2)
[2019-06-18 14:11] LABS: Appearance,Urine Cloudy (Clear); Bacteria,Urine Rare /hpf; Bilirubin,Urine Negative (Negative); Blood,Urine Negative (Negative); Color,Urine Yellow; Glucose,Urine (UA) Negative (Negative); Ketones,Urine 1+ (Negative); Leukocyte Esterase,Urine Trace (Negative); Mucus,Urine Many /hpf; Nitrite,Urine Negative (Negative); Protein,Urine 1+ (Negative); RBC,Urine 2 /hpf (0-5); Specific Gravity,Urine 1.026 (1.001-1.035); Squamous Epithelial Cell,Urine 28 /hpf (0-4); WBC,Urine 3 /hpf (0-5)
[2019-06-18 15:18] VITALS: BP 121/69; PULSE 68
== END 2019-06-18 15:30 | disposition home or self-care (01) ==
LOC: EC 12:10
DX: K29.70 Gastritis, unspecified, without bleeding (principal); E86.0 Dehydration; E86.9 Volume depletion, unspecified
CPT/HCPCS: 36415; 80053; 82150; 83690; 80178; 85025; 81001; 81025; 99284; 96374; 96375; 96361; 96372; J0500; J2405; C9113

== ENCOUNTER 2019-09-16 20:52 | Inpatient (IN) | payer MEDICAID, OTHER ==
[2019-09-16] MEDS ORDERED: SODIUM CHLORIDE 0.9% 1,000 ML IV STA (20:54)
[2019-09-16] MEDS ORDERED: ACTIVATED CHARCOAL 50 GM/240 ML BOTTLE NG-TUBE STA (20:54)
--- NOTE | 2019-09-16 21:05 | ED ---
Overdose HPI - General Chief Complaint: Overdose Stated Complaint: Overdose Time Seen by Provider: 09/16/19 20:53 Source: patient, EMS, RN notes reviewed, old records reviewed Mode of arrival: EMS Limitations: no limitations - History of Present Illness Initial Comments: This is a 18-year-old female to the ER for evaluation patient presents with overdose suicide attempt. Patient states she is homeless was recently male was 2 days ago and took overdose attempt to kill herself tonight. Patient unsure how many medications she took she took her prescribed psychiatric medications denying other drugs or alcohol patient does not want to participate to significantly in questioning MD Complaint: intentional overdose -: days(s) Intent: suicide attempt How Overdose Was Discovered: called family/friend Context: Intentional Overdose: work problems, financial issues, drug/ETOH problems Associated Symptoms: depression, palpitations Treatments Prior to Arrival: none - Related Data Home Medications Medication Instructions Recorded Confirmed Aripiprazole Lauroxil [Aristada] 882 mg IM Q42D 09/16/19 09/16/19 Cholecalciferol [Vitamin D3 (25 2,000 unit PO DAILY 09/16/19 09/16/19 Mcg = 1000 Iu)] Levothyroxine Sodium [Synthroid] 50 mcg PO DAILY 09/16/19 09/16/19 [place] 28 1 tab PO DAILY 09/16/19 09/16/19 OXcarbazepine [Trileptal] 300 mg PO HS 09/16/19 09/16/19 Allergies Allergy/AdvReac Type Severity Reaction Status Date / Time No Known Allergies Allergy Verified 09/16/19 21:24 Review of Systems ROS Statement: Those systems with pertinent positive or pertinent negative responses have been documented in the HPI. ROS Other: All systems not noted in ROS Statement are negative. Past Medical History Past Medical History: No Reported History Additional Past Medical History / Comment(s): prior overdose History of Any Multi-Drug Resistant Organisms: None Reported Past Surgical History: No Surgical Hx Reported Past Anesthesia/Blood Transfusion Reactions: No Reported Reaction Past Psychological History: ADD/ADHD, Bipolar Smoking Status: Never smoker Past Alcohol Use History: None Reported, Occasional Past Drug Use History: Marijuana - Past Family History Mother History Unknown: Yes General Exam Limitations: no limitations General appearance: alert, in no apparent distress Head exam: Present: atraumatic, normocephalic, normal inspection Eye exam: Present: normal appearance, PERRL, EOMI. Absent: scleral icterus, conjunctival injection, periorbital swelling ENT exam: Present: normal exam, mucous membranes moist Neck exam: Present: normal inspection. Absent: tenderness, meningismus, lymphadenopathy Respiratory exam: Present: normal lung sounds bilaterally. Absent: respiratory distress, wheezes, rales, rhonchi, stridor Cardiovascular Exam: Present: regular rate, normal rhythm, normal heart sounds. Absent: systolic murmur, diastolic murmur, rubs, gallop, clicks GI/Abdominal exam: Present: soft, normal bowel sounds. Absent: distended, tenderness, guarding, rebound, rigid Extremities exam: Present: normal inspection, full ROM, normal capillary refill. Absent: tenderness, pedal edema, joint swelling, calf tenderness Back exam: Present: normal inspection Neurological exam: Present: alert, oriented X3, CN II-XII intact Psychiatric exam: Present: normal affect, normal mood Skin exam: Present: warm, dry, intact, normal color. Absent: rash Course Vital Signs 09/16/19 09/16/19 20:56 21:28 Temperature 97 F L Pulse Rate 79 92 Respiratory 18 18 Rate Blood Pressure 112/77 108/74 O2 Sat by Pulse 100 100 Oximetry - Reevaluation(s) Reevaluation #1: 09/16/19 22:35 Medical record is reviewed Reevaluation #2: 09/16/19 22:35 Patient has no QRS widening here in the ER Reevaluation #3: 09/16/19 22:35 Patient remains Activase depressed and suicidal - Consultations Consultation #1: Spoke with sound was agreeable to admit, Dr. Mendoza Medical Decision Making - Medical Decision Making 18 female with suicide attempt secondary to O olanzapine unknown for years. Level is a send out patient will be admitted for telemetry and psychiatric consultation - Lab Data Result diagrams: 09/16/19 21:03 09/16/19 21:03 Lab Results 09/16/19 09/16/19 Range/Units 21:03 21:03 WBC 8.2 (4.0-11.0) k/uL RBC 4.37 (3.80-5.40) m/uL Hgb 12.2 (11.4-16.0) gm/dL Hct 38.3 (34.0-46.0) % MCV 87.7 (80.0-100.0) fL MCH 27.9 (25.0-35.0) pg MCHC 31.8 (31.0-37.0) g/dL RDW 13.9 (11.5-15.5) % Plt Count 239 (150-450) k/uL Neutrophils % 61 % Lymphocytes % 32 % Monocytes % 4 % Eosinophils % 2 % Basophils % 0 % Neutrophils # 5.0 (1.3-7.7) k/uL Lymphocytes # 2.6 (1.0-4.8) k/uL Monocytes # 0.3 (0-1.0) k/uL Eosinophils # 0.1 (0-0.7) k/uL Basophils # 0.0 (0-0.2) k/uL Sodium 138 (137-145) mmol/L Potassium 3.7 (3.5-5.1) mmol/L Chloride 105 (98-107) mmol/L Carbon Dioxide 23 (22-30) mmol/L Anion Gap 10 mmol/L BUN 13 (7-17) mg/dL Creatinine 0.74 (0.52-1.04) mg/dL Est GFR (CKD-EPI)AfAm >90 (>60 ml/min/1.73 sqM) Est GFR (CKD-EPI)NonAf >90 (>60 ml/min/1.73 sqM) Glucose 107 H (74-99) mg/dL Calcium 9.1 (8.4-10.2) mg/dL Total Bilirubin <0.1 L (0.2-1.3) mg/dL AST 29 (14-36) U/L ALT 25 (4-34) U/L Alkaline Phosphatase 64 (38-126) U/L Total Protein 6.8 (6.3-8.2) g/dL Albumin 4.1 (3.5-5.0) g/dL Lipase 79 (23-300) U/L Salicylates <1.0 mg/dL Acetaminophen <10.0 ug/mL Serum Alcohol <10 mg/dL - EKG Data -: EKG Interpreted by Me (EKG shows sinus rhythm with 75, RI 154, QRS 80, QTC 417) Critical Care Time Critical Care Time: Yes Total Critical Care Time: 31 Disposition Clinical Impression: Drug overdose, Suicide attempt, Acute drug overdose Narrative: JuanitoOxcarbamazepine OD Disposition: ADMITTED IP TO THIS HOSP Condition: Serious Is patient prescribed a controlled substance at d/c from ED?: No Referrals: None,Stated [Primary Care Provider] - 1-2 days
[2019-09-16 21:18] LABS: Basophils % (A) 0 %; Eosinophils # (A) 0.1 k/uL (0-0.7); Eosinophils % (A) 2 %; HCT 38.3 % (34.0-46.0); HGB 12.2 gm/dL (11.4-16.0); Lymphocytes # (A) 2.6 k/uL (1.0-4.8); Lymphocytes % (A) 32 %; MCH 27.9 pg (25.0-35.0); MCHC 31.8 g/dL (31.0-37.0); MCV 87.7 fL (80.0-100.0); Mean Platelet Volume 8.1; Monocytes # (A) 0.3 k/uL (0-1.0); Monocytes % (A) 4 %; Neutrophils % (A) 61 %; Platelet Count 239 k/uL (150-450); RBC 4.37 m/uL (3.80-5.40); RDW 13.9 % (11.5-15.5); WBC 8.2 k/uL (4.0-11.0)
[2019-09-16] MEDS ORDERED: LORazepam 2 MG/ML INJ IV STA (21:20)
[2019-09-16 21:28] LABS: ALT 25 U/L (4-34); AST 29 U/L (14-36); Acetaminophen <10.0 ug/mL; African American GFR (CKD) >90 (>60 ml/min/1.73 sqM); Albumin 4.1 g/dL (3.5-5.0); Alcohol <10 mg/dL; Alkaline Phosphatase 64 U/L (38-126); Anion Gap 10 mmol/L; Blood Urea Nitrogen 13 mg/dL (7-17); Calcium 9.1 mg/dL (8.4-10.2); Carbon Dioxide 23 mmol/L (22-30); Chloride 105 mmol/L (98-107); Glucose 107 mg/dL (74-99); Non-African American GFR(CKD) >90 (>60 ml/min/1.73 sqM); Potassium 3.7 mmol/L (3.5-5.1); Salicylate <1.0 mg/dL; Sodium 138 mmol/L (137-145); Total Bilirubin <0.1 mg/dL (0.2-1.3); Total Protein 6.8 g/dL (6.3-8.2)
[2019-09-16] MEDS ORDERED: SODIUM CHLORIDE 0.9% 1,000 ML IV ONE (22:29)
[2019-09-17 00:12] LABS: Amphetamine Screen,Urine Not Detected (NotDetected); Barbiturate Screen,Urine Not Detected (NotDetected); Benzodiazepines Screen,Urine Not Detected (NotDetected); Cocaine Screen,Urine Not Detected (NotDetected); Methadone Screen, Urine Not Detected (NotDetected); Opiate Screen,Urine Not Detected (NotDetected); Oxycodone Screen, Urine Not Detected (NotDetected); Phencyclidine Screen,Urine Not Detected (NotDetected); Tricyclic Antidepressant,Urine Not Detected (NotDetected); Urn Cannabinoid Scrn Not Detected (NotDetected)
--- NOTE | 2019-09-17 04:01 | P.HPIM ---
History of Present Illness H&P Date: 09/17/19 Chief Complaint: OD 18 year old female with bipolar disorder patient was kicked out of her home yesterday, she is currently homeless. she claims that she has one prescription for trileptal that she takes for bipolar disorder. she claims that it was about half full , and she took the whole bottle in an attempt for suicide. she currently feels well , denies any focal neuro deficits, headache, nausea, vomiting, denies any chest pain or trouble breathing denies any palpitations denies any chest pain or trouble breathing denies any coughing. Denies any nausea vomiting or diarrhea denies any abdominal pain Otherwise she denies any illegal drugs, alcohol or smoking patient is withdrawn and answers briefly patient denies any suicidal thoughts or attempts in the past In the ED poison control was notified initial EKG was unremarkable plans to repeat EKG at 4:30 in the morning to monitor QRS interval and QT interval Review of Systems Pertinent positives as noted in HPI. All other systems were reviewed and are negative Past Medical History Past Medical History: No Reported History Additional Past Medical History / Comment(s): bipolar diosrder History of Any Multi-Drug Resistant Organisms: None Reported Past Surgical History: No Surgical Hx Reported Past Anesthesia/Blood Transfusion Reactions: No Reported Reaction Past Psychological History: ADD/ADHD, Bipolar Smoking Status: Never smoker Past Alcohol Use History: None Reported, Occasional Past Drug Use History: Marijuana - Past Family History Mother History Unknown: Yes Family Medical History: No Reported History Medications and Allergies Home Medications Medication Instructions Recorded Confirmed Type Aripiprazole Lauroxil [Aristada] 882 mg IM Q42D 09/16/19 09/16/19 History Cholecalciferol [Vitamin D3 (25 2,000 unit PO DAILY 09/16/19 09/16/19 History Mcg = 1000 Iu)] Levothyroxine Sodium [Synthroid] 50 mcg PO DAILY 09/16/19 09/16/19 History [place] 28 1 tab PO DAILY 09/16/19 09/16/19 History OXcarbazepine [Trileptal] 300 mg PO HS 09/16/19 09/16/19 History Allergies Allergy/AdvReac Type Severity Reaction Status Date / Time No Known Allergies Allergy Verified 09/16/19 21:24 Physical Exam Vitals: Vital Signs Temp Pulse Pulse Resp BP BP Pulse Ox 09/17/19 00:00 98.2 F 91 18 101/56 98 09/16/19 23:05 98.0 F 86 16 101/59 99 09/16/19 21:28 92 18 108/74 100 09/16/19 20:56 97 F L 79 18 112/77 100 Intake and Output 09/16/19 09/16/19 09/17/19 14:59 22:59 06:59 Other: Weight 55.792 kg 55.792 kg Constitutional: No acute distress, conversant, pleasant Eyes: Anicteric sclerae, moist conjunctiva, Pupils equal round reactive to light ENMT: NC/AT Oropharynx clear, no erythema, or exudates Neck: Supple, FROM, no masses, or JVD No carotid bruits No thyromegaly Lungs: Clear to auscultation Clear to percussion Normal respiratory effort, no accessory muscle use Cardiovascular: Heart regular in rate and rhythm, No murmurs, gallops, or rubs No peripheral edema Abdominal: Soft Nontender, no guarding, rebound or rigidity Abdomen moving with respiration Normoactive bowel sounds No hepatomegaly, No splenomegaly No palpable mass No abdominal wall hernia noted Skin: Normal temperature, tone, texture, turgor No induration No subcutaneous nodules No rash, lesions No ulcers Extremities: No digital cyanosis No clubbing Pedal pulses intact and symmetrical Radial pulses intact and symmetrical No calf tenderness Psychiatric: Alert and oriented to person, place and time Depressed affect Poor judgement Neuro Muscles Strength 5/5 in all 4 extremities Sensation to light touch grossly present throughout Cranial nerves II-XII grossly intact No focal sensory deficits Deep tendon reflexes over the knees equal and unremarkable Lymphatics: no palpable cervical or supraclavicular , or inguinal lymph nodes Results CBC & Chem 7: 09/16/19 21:03 09/16/19 21:03 Labs: Abnormal Lab Results - Last 24 Hours (Table) 09/16/19 Range/Units 21:03 Glucose 107 H (74-99) mg/dL Total Bilirubin <0.1 L (0.2-1.3) mg/dL Thrombosis Risk Factor Assmnt - Choose All That Apply Any of the Below Risk Factors Present?: No Other Risk Factors: No Other congenital or acquired thrombophilia - If yes, enter type in comment: No Thrombosis Risk Factor Assessment Level: Very Low Risk Assessment and Plan Assessment: 18-year-old female with bipolar disorder She recently became homeless had suicidal ideation and overdosed on Trileptal patient comes in for further care and management She reports suicidal ideation Anticipated length of stay less than 2 midnight Overdose on Trileptal Suicidal ideation and attempt Bipolar disorder Plan Toxicology drug screen is negative Supportive care Poison control was notified IV fluid hydration Hold antipsychotic medication Suicide precautions Psych consultation Check Trileptal level to send out Cardiac monitoring Initial EKG unremarkable, repeat EKG after 6 hours of the initial one at around 4:30 in the morning BHCG negative CODE STATUS:full code DVT prophylaxis: low risk , mechanical Discussed with: Patient, ER, RN Anticipated length of stay < than [address]: pending psych eval A total of 60 minutes was spent on the care of this complex patient more than 50% of the time was spent in counseling and care coordination.
--- NOTE | 2019-09-17 13:18 | P.PN ---
Progress Note - Text the patient seen and examined at bedside vice president safety in place, reports that she's had prior inpatient psychiatry before and did confirm that she was trying to kill herself with the Trileptal overdose. Reports that she only takes tried episode this time for her bipolar disease and borderline personally disorder. Vital signs are currently stable Continue current treatment plan, patient scheduled to have psychiatry consultation. We will check labs today and tomorrow
[2019-09-17 13:51] LABS: Basophils % (A) 0 %; Eosinophils # (A) 0.1 k/uL (0-0.7); Eosinophils % (A) 1 %; HCT 36.7 % (34.0-46.0); HGB 11.8 gm/dL (11.4-16.0); Lymphocytes # (A) 2.4 k/uL (1.0-4.8); Lymphocytes % (A) 40 %; MCH 27.9 pg (25.0-35.0); MCHC 32.3 g/dL (31.0-37.0); MCV 86.6 fL (80.0-100.0); Mean Platelet Volume 8.4; Monocytes # (A) 0.3 k/uL (0-1.0); Monocytes % (A) 5 %; Neutrophils # (A) 3.1 k/uL (1.3-7.7); Neutrophils % (A) 52 %; Platelet Count 233 k/uL (150-450); RBC 4.24 m/uL (3.80-5.40); RDW 13.9 % (11.5-15.5)
--- NOTE | 2019-09-17 14:02 | P.CN ---
Psychiatric Consult - . Consult date: 09/17/19 Consult:: 09/17/19 12:52 IDENTIFYING DATA: This patient is a 18-year-old female who currently is homeless and currently unemployed and receives social benefits and bridge card HISTORY OF PRESENT ILLNESS: The patient has a history of bipolar disorder, and has a history of multiple suicide attempts in the past including several overdoses. Patient presented to the hospital yesterday night for suicide attempt after an overdose. As per ER report patient allegedly took her Trileptal and attempted to kill herself had EKG which is unremarkable and UDS which was negative. Patient was admitted to the medical floors for observation and psychiatry was consulted. Patient was agreeable to speak to commercial insurance underwriter at the bedside and stated that she was feeling depressed and had an increase in suicidal ideations yesterday and was feeling "overwhelmed". She states that she was "not thinking well" when she overdosed on her medications. She states that the biggest trigger for her was being kicked out of her mother's house 3 days ago and was staying with her ex-boyfriend and had to leave his house and was not able to go anywhere else and was temporarily homeless. She states that she feels "stupid about it" and also guilty. She admits to depression and mood swings. She has poor insight judgment and poor impulse control. Poor coping skills. At this time patient denies any suicidal or homical ideations, intent or plan. Patient denies any auditory, visual hallucinations and denies any paranoia or delusions. patient admits to smoking cigarettes and marijuana and denies any other recreational drug use. She admitted to poor medication compli ance at home. She also states that she did not take her Abilify long-acting injection last month due to the clinic being closed. PAST PSYCHIATRIC HISTORY: patient claims have a history of bipolar disorder, was previously on Abilify Maintenna long-acting injection, lithium, Trileptal and Seroquel in the past. Patient was supposed to be following up with [facility] however has not received her Abilify Maintenna last month. She has a history of being court ordered in the past for treatment. Patient's last psychiatric admission was 2 months ago and has had several overdose attempts. PAST MEDICAL HISTORY: denies ALLERGIES: as per EMR CHEMICAL DEPENDENCY HISTORY: as per HPI FAMILY PSYCHIATRIC/SUBSTANCE USE HISTORY: denies SOCIAL HISTORY: patient was raised in [place] and was adopted at a young age. She states that she dropped out school in the 12th grade. 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 He currently receives bridge card benefits. She currently lives with her friend and her friend's mother, single and unmarried. MENTAL STATUS EXAM: General Appearance: Patient appears to be stated age is alert, directable during conversation. Marginal hygiene and grooming. Behavior: Patient is calmly lying in bed without any agitated behavior. Superficially cooperative Speech: Patient's speech is fluent and nonpressured. soft tone. Mood/Affect: Patient reports their mood is "mood swings", affect is congruent Suicidality/Homicidality: Patient denies having any suicidal or homicidal ideation intent or plan. Perceptions: Patient denies any auditory or visual hallucinations. Though content/process: There is no evidence of any delusional thought content and thought process is linear and goal-directed. Poverty of content and concrete. Memory and concentration: AOX3, grossly intact for the purposes of this session. Can spell "WORLD" backwards Judgment and insight:poor/impulsive IMPRESSIONS: bipolar disorder, currently depressed Cannabis use disorder Cluster B personality traits Nicotine dependence. PLAN: -At this time patient DOES meet criteria for inpatient psychiatric admission. -Would recommend the following medication changes/additions: continue to hold off on psychiatric medication at this time until patient is medically cleared after her overdose attempt. -Continue 1:1 sitter for safety -Cannot leave AMA at this time. Patient will need a petition and certification if attempting to leave AMA. -When medically stable, patient is eligible for transfer to an outside psychiatric facility. -Psychiatry will sign off at this point 09/17/19 13:56
[2019-09-17 14:03] LABS: ALT 23 U/L (4-34); AST 22 U/L (14-36); African American GFR (CKD) >90 (>60 ml/min/1.73 sqM); Albumin 3.7 g/dL (3.5-5.0); Alkaline Phosphatase 52 U/L (38-126); Anion Gap 8 mmol/L; Blood Urea Nitrogen 10 mg/dL (7-17); Calcium 9.2 mg/dL (8.4-10.2); Carbon Dioxide 24 mmol/L (22-30); Chloride 107 mmol/L (98-107); Glucose 104 mg/dL (74-99); Non-African American GFR(CKD) >90 (>60 ml/min/1.73 sqM); Potassium 4.2 mmol/L (3.5-5.1); Sodium 139 mmol/L (137-145); Total Bilirubin 0.1 mg/dL (0.2-1.3); Total Protein 6.4 g/dL (6.3-8.2)
[2019-09-18 06:44] LABS: ALT 21 U/L (4-34); AST 27 U/L (14-36); African American GFR (CKD) >90 (>60 ml/min/1.73 sqM); Albumin 3.7 g/dL (3.5-5.0); Alkaline Phosphatase 53 U/L (38-126); Anion Gap 6 mmol/L; Blood Urea Nitrogen 13 mg/dL (7-17); Carbon Dioxide 23 mmol/L (22-30); Chloride 109 mmol/L (98-107); Glucose 98 mg/dL (74-99); Non-African American GFR(CKD) >90 (>60 ml/min/1.73 sqM); Potassium 4.3 mmol/L (3.5-5.1); Sodium 138 mmol/L (137-145); Total Bilirubin 0.1 mg/dL (0.2-1.3); Total Protein 6.4 g/dL (6.3-8.2)
[2019-09-18 06:45] LABS: Basophils % (A) 0 %; Eosinophils # (A) 0.2 k/uL (0-0.7); Eosinophils % (A) 2 %; HCT 38.3 % (34.0-46.0); HGB 12.1 gm/dL (11.4-16.0); Lymphocytes # (A) 3.9 k/uL (1.0-4.8); Lymphocytes % (A) 56 %; MCH 27.8 pg (25.0-35.0); MCHC 31.7 g/dL (31.0-37.0); MCV 87.6 fL (80.0-100.0); Mean Platelet Volume 8.2; Monocytes # (A) 0.4 k/uL (0-1.0); Monocytes % (A) 5 %; Neutrophils # (A) 2.3 k/uL (1.3-7.7); Neutrophils % (A) 34 %; Platelet Count 231 k/uL (150-450); RBC 4.37 m/uL (3.80-5.40)
[2019-09-18 08:40] VITALS: BP 98/55; PULSE 64; RESP 18; TEMP 98.5
--- NOTE | 2019-09-18 08:43 | P.PN ---
Progress Note - Text Progress Note Date: 09/18/19 Patient is medically stable to be transferred to in patient psychiatry.
--- NOTE | 2019-09-18 09:05 | P.DS ---
Providers Date of admission: 09/16/19 22:33 Expected date of discharge: 09/18/19 Attending physician: Carolin Curtis MD Consults: 09/16/19 22:29 Consult Physician Routine Consulting Provider: Al Barton Consult Reason/Comments: OD,SI Do you want consulting provider notified?: Yes Primary care physician: Stated None Hospital Course: Admit Diagnoses 1. Overdose on Trileptal 2. Suicidal ideation and attempt 3. Bipolar disorder Discharge Diagnoses 1. Overdose on Trileptal resolved 2. Suicidal ideation and attempt resolved 3. Bipolar disorder 18 year old female with bipolar disorder. Patient was kicked out of her home, she was homeless. she claimed that she had one prescription for trileptal that she takes for bipolar disorder. She claimed that it was about half full , and she took the whole bottle in an attempt for suicide. Patient currently feels well , denies any focal neuro deficits, headache, nausea, vomiting, denies any chest pain or trouble breathing denies any palpitations denies any chest pain or trouble breathing denies any coughing. Denies any nausea vomiting or diarrhea denies any abdominal pain Otherwise she denies any illegal drugs, alcohol or smoking patient is withdrawn and answers briefly patient denies any suicidal thoughts or attempts in the past. A 14 point review of systems was assessed. Patient was evaluated by psychiatry is deemed appropriate for inpatient psych. Vitals temperature 98.5 heart rate 64 respiratory rate 18 blood pressure 90/55 oxygen 98% room air Labs white blood cell count 7.0 hemoglobin 12.1 hematocrit 30.3 platelets 231 sodium 138 potassium 4.3 chloride 109 CO2 23 BU and 13 creatinine 0.76 EKG done on 09/16/2019 revealed normal sinus rhythm General: [non toxic], [no distress], [appears at stated age] Derm: [warm], [dry] Head: [atraumatic], [normocephalic], [symmetric] Eyes: [EOMI], [no lid lag], [anicteric sclera] Mouth: [no lip lesion], [mucus membranes moist] Cardiovascular: [S1S2 reg], [no murmur], [positive posterior tibial pulse bilateral], Lungs: [CTA bilateral], [no rhonchi, no rales] , [no accessory muscle use] Abdominal: [soft], [ nontender to palpation], [no guarding], [no appreciable organomegaly] Ext: [no gross muscle atrophy], [no edema], [no contractures] Neuro: [ CN II-XI grossly intact], [no focal neuro deficits] Psych: [Alert], [oriented], [appropriate affect] Diet Regular diet Condition Fair Transfer to INPATIENT PSYCHIATRY Patient Condition at Discharge: Fair Plan - Discharge Summary Discharge Rx Participant: No New Discharge Prescriptions: Continue OXcarbazepine [Trileptal] 300 mg PO HS Aripiprazole Lauroxil [Aristada] 882 mg IM Q42D Levothyroxine Sodium [Synthroid] 50 mcg PO DAILY Cholecalciferol [Vitamin D3 (25 Mcg = 1000 Iu)] 2,000 unit PO DAILY [place] 28 1 tab PO DAILY Discharge Medication List Aripiprazole Lauroxil [Aristada] 882 mg IM Q42D 09/16/19 [History] Cholecalciferol [Vitamin D3 (25 Mcg = 1000 Iu)] 2,000 unit PO DAILY 09/16/19 [History] Levothyroxine Sodium [Synthroid] 50 mcg PO DAILY 09/16/19 [History] [place] 28 1 tab PO DAILY 09/16/19 [History] OXcarbazepine [Trileptal] 300 mg PO HS 09/16/19 [History] Follow up Appointment(s)/Referral(s): None,Stated [Primary Care Provider] - 1-2 days
== END 2019-09-18 17:46 | DRG 918 ==
LOC: EC 20:52 → 3SCARD 22:33
PROVIDERS: ADMIT Internal Medicine; ATTEND Internal Medicine
DX: T42.1X2A Poisoning by iminostilbenes, intentional self-harm, initial encounter (principal); F31.9 Bipolar disorder, unspecified; F90.9 Attention-deficit hyperactivity disorder, unspecified type; Z59.0 Homelessness; Z79.890 Hormone replacement therapy
CPT/HCPCS: 36415; 80053; 80183; 80306; 80320; 80329; 81025; 82075; 83520; 83690; 85025; 93005; 96361; 96374; 99291

== ENCOUNTER → 2020-12-20 | Outpatient (CLI) | payer OTHER ==
--- NOTE | 2020-12-20 16:30 | US ---
EXAMINATION TYPE: US pelvis complete transvag DATE OF EXAM: 12/20/2020 COMPARISON: NONE CLINICAL HISTORY: N94.10 Unspecified dyspareunia. TECHNIQUE: Transvaginal (TV) and Transabdominal (TA) . Transabdominal sonographic images of the pel vis were acquired. Transvaginal sonographic images were medically necessary to better assess the fol lowing anatomy: ovaries. Date of LMP: 12/10/2020 EXAM MEASUREMENTS: Uterus: 7.1 x 3.2 x 4.4 cm Endometrial Stripe: 0.4 cm Right Ovary: 2.8 x 2.4 x 1.7 cm Left Ovary: 2.3 x 2.1 x 1.4 cm 1. Uterus: Anteverted wnl 2. Endometrium: measures 0.4 cm 3. Right Ovary: multiple follicles noted. 4. Left Ovary: multiples follicles noted. 5. Bilateral Adnexa: wnl 6. Posterior cul-de-sac: no free fluid. IMPRESSION: 1. Endometrial stripe is within normal limits. 2. Bilateral follicles. 3. No free fluid.
== END | disposition home or self-care (01) ==
LOC: RADUSWWP 15:28
PROVIDERS: ATTEND Obstetrics & Gynecology
DX: N94.10 Unspecified dyspareunia (principal)
CPT/HCPCS: 76830; 76856

== ENCOUNTER 2021-07-04 13:14 | Emergency (ER) | payer OTHER ==
[2021-07-04 13:39] VITALS: BP 129/80; PULSE 83; RESP 18
--- NOTE | 2021-07-04 15:22 | ED ---
Psych HPI - General Source: patient, RN notes reviewed Mode of arrival: ambulatory Limitations: no limitations <Job Day - Last Filed: 07/05/21 06:29> <Sivan Downs - Last Filed: 07/22/21 16:20> - General Chief Complaint: Psychiatric Symptoms Stated Complaint: EPS eval Time Seen by Provider: 07/04/21 14:33 - History of Present Illness Initial Comments: 20-year-old female presents emergency department for a psychiatric evaluation. Patient states she is very depressed, recently lost her job. States she just feeling hopeless. Patient denies any illicit drug use no alcohol abuse denies any self-harm. Patient does currently take psychiatric medications and sees outpatient services. (Job Day) - Related Data Home Medications Medication Instructions Recorded Confirmed [place] 28 1 tab PO DAILY 09/16/19 07/04/21 ARIPiprazole 15 mg PO HS 07/04/21 07/04/21 [place] Carbonate 600 mg PO HS 07/04/21 07/04/21 Omeprazole Magnesium [PriLOSEC] 20 mg PO DAILY PRN 07/04/21 07/04/21 Allergies Allergy/AdvReac Type Severity Reaction Status Date / Time No Known Allergies Allergy Verified 07/04/21 15:17 Review of Systems ROS Other: All systems not noted in ROS Statement are negative. <Job Day - Last Filed: 07/05/21 06:29> ROS Other: All systems not noted in ROS Statement are negative. <Sivan Downs - Last Filed: 07/22/21 16:20> ROS Statement: Those systems with pertinent positive or pertinent negative responses have been documented in the HPI. Past Medical History Past Medical History: No Reported History Additional Past Medical History / Comment(s): bipolar diosrder History of Any Multi-Drug Resistant Organisms: None Reported Past Surgical History: No Surgical Hx Reported Past Anesthesia/Blood Transfusion Reactions: No Reported Reaction Past Psychological History: ADD/ADHD, Bipolar Smoking Status: Never smoker Past Alcohol Use History: None Reported, Occasional Past Drug Use History: Marijuana - Past Family History Mother History Unknown: Yes Family Medical History: No Reported History <Job Day - Last Filed: 07/05/21 06:29> General Exam Limitations: no limitations General appearance: alert, in no apparent distress Head exam: Present: atraumatic, normocephalic, normal inspection Eye exam: Present: normal appearance, PERRL, EOMI. Absent: scleral icterus, conjunctival injection, periorbital swelling ENT exam: Present: normal exam, mucous membranes moist Neck exam: Present: normal inspection, full ROM. Absent: tenderness, meningismus, lymphadenopathy Respiratory exam: Present: normal lung sounds bilaterally. Absent: respiratory distress, wheezes, rales, rhonchi, stridor Cardiovascular Exam: Present: regular rate, normal rhythm, normal heart sounds. Absent: systolic murmur, diastolic murmur, rubs, gallop, clicks GI/Abdominal exam: Present: soft, normal bowel sounds. Absent: distended, tenderness, guarding, rebound, rigid Neurological exam: Present: alert, oriented X3 Psychiatric exam: Present: depressed <Job Day - Last Filed: 07/05/21 06:29> Course Vital Signs 07/04/21 13:36 Pulse Rate 83 Respiratory 18 Rate Blood Pressure 129/80 O2 Sat by Pulse 97 Oximetry Medical Decision Making <Job Day - Last Filed: 07/05/21 06:29> <Sivan Downs - Last Filed: 07/22/21 16:20> - Medical Decision Making Patient evaluated by EPS and [facility] patient is stable for discharge patient not suicidal homicidal. (Job Day) I was available for consultation in the emergency department. The history and physical exam were done by the midlevel provider. I was consulted for this patients care. I reviewed the case with the midlevel provider and based on their presentation of the patient, I agree with the assessment, medical decision making and plan of care as documented. Chart was dictated using [employer] dictation software. Attempts were made to correct any dictation errors however some typographical errors may persist. Patient was seen during a national state of emergency due to the Covid-19 pandemic. (Sivan Downs) - Lab Data Lab Results 07/04/21 07/04/21 Range/Units 15:20 15:20 Urine HCG, Qual Not Detected (Not Detectd) Urine Opiates Screen Not Detected (NotDetected) Ur Oxycodone Screen Not Detected (NotDetected) Urine Methadone Screen Not Detected (NotDetected) Ur Propoxyphene Screen Not Detected (NotDetected) Ur Barbiturates Screen Not Detected (NotDetected) U Tricyclic Antidepress Not Detected (NotDetected) Ur Phencyclidine Scrn Not Detected (NotDetected) Ur Amphetamines Screen Not Detected (NotDetected) U Methamphetamines Scrn Not Detected (NotDetected) U Benzodiazepines Scrn Not Detected (NotDetected) Urine Cocaine Screen Not Detected (NotDetected) U Marijuana (THC) Screen Not Detected (NotDetected) Disposition Is patient prescribed a controlled substance at d/c from ED?: No Time of Disposition: 06:30 <oJb Day - Last Filed: 07/05/21 06:29> <Sivan Downs - Last Filed: 07/22/21 16:20> Clinical Impression: Depression Disposition: HOME SELF-CARE Instructions (If sedation given, give patient instructions): Depression (DC), Help Prevent Suicide in Older Adults (ED), Suicide Prevention (ED) Additional Instructions: Please return to the Emergency Department if symptoms worsen or any other concerns. Referrals: [facility] [Primary Care Provider] - 1-2 days
[2021-07-04 15:54] LABS: Amphetamine Screen,Urine Not Detected (NotDetected); Barbiturate Screen,Urine Not Detected (NotDetected); Benzodiazepines Screen,Urine Not Detected (NotDetected); Cocaine Screen,Urine Not Detected (NotDetected); Opiate Screen,Urine Not Detected (NotDetected); Oxycodone Screen, Urine Not Detected (NotDetected); Phencyclidine Screen,Urine Not Detected (NotDetected); Tricyclic Antidepressant,Urine Not Detected (NotDetected); Urn Cannabinoid Scrn Not Detected (NotDetected)
[2021-07-04 16:22] LABS: Methadone Screen, Urine Not Detected (NotDetected)
== END 2021-07-04 17:30 | disposition home or self-care (01) ==
LOC: EC 13:14
DX: F32.A Depression, unspecified (principal)
CPT/HCPCS: 80306; 81025; 82075; 99284

== ENCOUNTER 2021-08-03 16:13 | Inpatient (IN) | payer MEDICAID ==
[2021-08-03] MEDS ORDERED: HALOPERIDOL LACTATE 5 MG/ML 1 ML VIAL IM PRN (16:17)
[2021-08-03] MEDS ORDERED: MAGNESIUM HYDROXIDE 2,400 MG/10 ML CUP PO PRN (16:17)
[2021-08-03] MEDS ORDERED: MAG HYDROX/AL HYDROX/SIMETH 30 ML CUP PO PRN (16:17)
[2021-08-03] MEDS ORDERED: ACETAMINOPHEN TAB 325 MG TAB PO PRN (16:17)
[2021-08-03] MEDS ORDERED: LORazepam 2 MG/ML INJ IM PRN (16:26)
[2021-08-03] MEDS ORDERED: haloperidoL 5 MG TAB PO PRN (16:27)
[2021-08-03] MEDS: PYRIDOXINE 50 MG TAB PO SCH (21:33)
[2021-08-04] MEDS: ARIPiprazole 10 MG TAB PO SCH (09:00)
[2021-08-04] MEDS ORDERED: NICOTINE 14MG/24HR PATCH TRANSDERM SCH (09:00)
[2021-08-04] MEDS: CHOLECALCIFEROL 25 MCG (1000 IU) TABLET PO SCH (09:00)
[2021-08-04 09:07] LABS: Chol/HDL Ratio 2.87 Ratio; LDL Cholesterol,Calculated 85.5 mg/dL (0.0-131.0)
[2021-08-04] MEDS ORDERED: PANTOPRAZOLE 40 MG TABLET PO PRN (15:51)
--- NOTE | 2021-08-04 17:32 | P.HPMEDMHU ---
History of Present Illness H&P Date: 08/04/21 Chief Complaint: jhoanon Patient is a 22 yo female with a hx of bipolar disorder and overdose in the past and gastritis who presented with EMS after an overdose. In the ED she was found to have a mildly elevated lithium level. Posion controlled was called and recommended IV fluids, gastric lavage, and serial lithium levels. Arrangements were made for admission. She was continued on IV fluids. [place] levels were tract and were downtrending. She continues to do well. She was seen by psychiatry who recommended inpatient admission. Patient was agreeable and she was subsequently discharged to mental health. Patient seen and examined. He is feeling well today. Denies any sore throat. Continues to have a normal nausea. No increased abdominal pain. No other complaints currently. Pertinent positives and negatives as discussed in HPI, a complete review of sys tems was performed and all other systems are negative. General: non toxic, no distress, appears at stated age Derm: warm, dry Head: atraumatic, normocephalic, symmetric Eyes: EOMI, no lid lag, anicteric sclera, pupils equal round reactive to light ENT: Nose and ears atraumatic, no thrush, no pharyngeal erythema Neck: No thyromegaly, no cervical lymphadenopathy, trachea midline, supple Mouth: no lip lesion, mucus membranes moist Cardiovascular: S1S2 reg, no murmur, positive posterior tibial pulse bilateral, no edema, capillary refill less than 2 seconds Lungs: clear to ascultation bilateral, no ronchi, no rales, no wheeze, no accessory muscle use Abdominal: soft, nontender to palpation, no guarding, no appreciable organomegaly, normal bowel sounds Ext: no gross muscle atrophy, muscle strength muscle strength 5 out of 5 in all 4 extremities, no contractures Neuro: CN II-XI grossly intact, light touch intact all 4 extremities, finger to nose within normal limits, Psych: Alert, oriented, jovial affect Chronic gastritis -Continue with PPI Bipolar disorder with recent intentional overdose -Your psych management Thank you for allowing us to participate in the care of this pleasant patient. Do not hesitate to contact us with questions. Someone can be reached from the [facility] hospitalist group all hours of the day at [phone] or via [employer]. Past Medical History Past Medical History: No Reported History Additional Past Medical History / Comment(s): bipolar diosrder History of Any Multi-Drug Resistant Organisms: None Reported Past Surgical History: No Surgical Hx Reported Past Anesthesia/Blood Transfusion Reactions: No Reported Reaction Past Psychological History: ADD/ADHD, Bipolar Smoking Status: Never smoker Past Alcohol Use History: None Reported, Occasional Past Drug Use History: Marijuana - Past Family History Mother History Unknown: Yes Family Medical History: No Reported History Medications and Allergies Home Medications Medication Instructions Recorded Confirmed Type [place] 28 1 tab PO DAILY 09/16/19 08/03/21 History Omeprazole Magnesium [PriLOSEC] 20 mg PO DAILY PRN 07/04/21 08/03/21 History Cholecalciferol [Vitamin D3 (25 50 mcg PO DAILY 08/02/21 08/03/21 History Mcg = 1000 Iu)] Polyethylene Glycol 3350 [Miralax] 17 gm PO DAILY PRN 08/02/21 08/03/21 History Pyridoxine [Vitamin B-6] 100 mg PO HS 08/02/21 08/03/21 History ARIPiprazole [Abilify] 10 mg PO DAILY tab 08/03/21 08/03/21 Rx Allergies Allergy/AdvReac Type Severity Reaction Status Date / Time No Known Allergies Allergy Verified 07/04/21 15:17 Physical Exam Osteopathic Statement: *. No significant issues noted on an osteopathic structural exam other than those noted in the History and Physical/Consult. Vitals: Vital Signs Temp Pulse Resp BP Pulse Ox 08/04/21 06:30 97.7 F 67 110/56 89 L 08/03/21 17:32 98.3 F 80 20 121/68 Cranial Nerve Examination - Cranial Nerves Cranial Nerve II- Optic: Intact Cranial Nerve III- Oculomotor: Intact Cranial Nerve IV- Trochlear: Intact Cranial Nerve V- Trigeminal: Intact Cranial Nerve - Abducens: Intact Cranial Nerve VII- Facial: Intact Cranial Nerve VIII- Auditory: Intact Cranial Nerve IX- Glossopharyngeal: Intact Cranial Nerve X- Vagus: Intact Cranial Nerve XI- Accessory: Intact Cranial Nerve XII- Hypoglossal: Intact Thrombosis Risk Factor Assmnt - Choose All That Apply Any of the Below Risk Factors Present?: No Other Risk Factors: No Other congenital or acquired thrombophilia - If yes, enter type in comment: No Thrombosis Risk Factor Assessment Level: Very Low Risk
--- NOTE | 2021-08-04 18:07 | P.HP ---
Psychiatric H&P - . H&P Date: 08/04/21 History & Physical: Allergies Allergy/AdvReac Type Severity Reaction Status Date / Time No Known Allergies Allergy Verified 07/04/21 15:17 Vital Signs Temp 97.7 F 08/04/21 06:30 Pulse 67 08/04/21 06:30 Resp 20 08/03/21 17:32 BP 110/56 08/04/21 06:30 Pulse Ox 89 L 08/04/21 06:30 Intake & Output 08/03/21 08/04/21 08/04/21 18:59 06:59 18:59 Weight 62 kg Laboratory Last Values Estimated Ave Glu mg/dL 124 08/03/21 06:05 Hemoglobin A1c 6.0 % (0.0-6.0) 08/03/21 06:05 Triglycerides 107.00 mg/dL (0.00-149.00) 08/03/21 06:05 Cholesterol 164.00 mg/dL (0.00-200.00) 08/03/21 06:05 LDL Cholesterol, Calc 85.5 mg/dL (0.0-131.0) 08/03/21 06:05 VLDL Cholesterol, Calc 21.40 mg/dL (5.00-40.00) 08/03/21 06:05 HDL Cholesterol 57.10 mg/dL (40.00-60.00) 08/03/21 06:05 Cholesterol/HDL Ratio 2.87 Ratio 08/03/21 06:05 08/04/21 17:49 Referral source She was admitted to [facility] after she overdose with lithium . She responded to IV fluid with no renal impariement. She was seen at the [facility] early today aug 04 and was subsequently transferred to Acute psychiatricc unit. She was agreeble to be admitted . Her mother was a psychiatric nurse working on [facility] and had a discussion with the attending psychiatrist Dr. Bozena Zuluaga for assuming his care in next week for further stabilization Chief complaint: medication issue HPI> with a history of bipolar disorder, she was somewhat vague regarding her involvment with the treatment team in [place]. She was aware that whenever she relapsed, he rmood would change to being somewhat silly and impulsive. For a while she seemed to be stable on Long acting mood-stablizer/atypical antipsychotics. eg Ability Maintenna. I have to verify her full medication history. She was on lithium for a while after she switched over form im long acting depot Rx to lithium . She found lithium to be not to her liking; earlier her mother noted her mood swings appeared to have improved on depot injection. Patient is a 22 yo female with a hx of bipolar disorder and overdose in the past and gastritis who presented with EMS after an overdose. In the ED she was found to have a mildly elevated lithium level. Posion controlled was called and recommended IV fluids, gastric lavage, and serial lithium levels. Arrangements were made for admission. She was continued on IV fluids. [place] levels were tract and were downtrending. She continues to do well. She was seen by psychiatry who recommended inpatient admission. Patient was agreeable and she was subsequently discharged to mental health. She was sensitive towards relationship problem. She talked about her steady relationship with her boyfriend. and dubious relatiionship with her mother. However, she did not feel very uncomfortable to have her mother working in the same unit where she was admitted. She was not scared of the lithium toxicity. and seemed to have recovered uneventfully. She agreed she was being impulisve and dicated by her spur of the moment of her mood. Past Psychiatric history; Recentl diagnosis of Bipolar disorder. However, her adolescence years may have marked with her mood swings. She was not prepared to elaborate further. Past medical history: NO sequele from [place] overdose. as documented in the medical notes Substance use histroy: She did not view substance use as her primary or comorbid problem. No smoking no abuse of opioids, cocaine, cannabis. to be further confirmed through her mother a a relaible informnant MSE: She was very cooperative lucid coherent and engaged very well during the brief session. She was not apoologetic for her [place] overdose. No "silliness" was apparent. Her affect was moderately anxious but no euphoric no pressures of speech no flight of ideas. she kept focussed on her relationship and her need for finding the right medication. She denied any suicidal or homicidal ideation. No hallucinations. Cognition: oriented. fair insight into her condition. No suicidal ideation was evident. Diagnosis: Bipolar depressive disorder. Most recent episode. depressive episode. Management Plan : she would be re-started under Dr. Bozena zuluaga for depot Injection . She was willing to give invega a trial prior to be given depot injection Monitor for mood symptoms and relationship as stressor. engage with her mother and social support system. Long goal for career and social integration may benefit her .
[2021-08-04] MEDS: PYRIDOXINE 50 MG TAB PO SCH (20:56)
[2021-08-04] MEDS: LORazepam 1 MG TAB PO PRN (21:45)
[2021-08-05] MEDS: ARIPiprazole 10 MG TAB PO SCH (08:24)
[2021-08-05] MEDS: CHOLECALCIFEROL 25 MCG (1000 IU) TABLET PO SCH (08:24)
[2021-08-05] MEDS: ONDANSETRON 4 MG TAB PO PRN ×2 (08:24→21:28)
[2021-08-05] MEDS ORDERED: [UNRECOGNIZED DRUG - OTHER] PO SCH (09:00)
[2021-08-05] MEDS: ESTARYLLA PO SCH (15:55)
--- NOTE | 2021-08-05 19:21 | P.PN ---
Subjective Progress Note Date: 08/05/21 Principal diagnosis: progress note She was restarted on oral rx as a precursor to her being back on Depot. She was agreeable for her mother to talk to Dr. Seals in the coming week. Her mood hea become more stable with no mood swings. She was pleasant and optimistic. She fit well into the unit milieu. No complaint of side effect of medication. She was more agreeable to her need for Rx for maintenance therapy Plan; Dr Seals would [facility]ii[facility]. Reinforce Rx compliance. participate in unit therapy. family support to be further entrenched. Objective - Vital Signs Vital signs: Vital Signs Temp 97.3 F L 08/05/21 04:20 Pulse 91 08/05/21 04:20 Resp 16 08/05/21 04:20 BP 126/60 08/05/21 04:20 Pulse Ox 98 08/05/21 04:20 Intake & Output 08/05/21 08/05/21 08/06/21 06:59 18:59 06:59 Weight 62.1 kg
[2021-08-05] MEDS: PYRIDOXINE 50 MG TAB PO SCH (19:56)
[2021-08-05 20:33] LABS: Glucose,Whole Blood 112 mg/dL (75-99)
[2021-08-05] MEDS: LORazepam 1 MG TAB PO PRN (20:44)
[2021-08-06] MEDS: ESTARYLLA PO SCH (08:38)
[2021-08-06] MEDS: ARIPiprazole 10 MG TAB PO SCH (08:38)
[2021-08-06] MEDS: CHOLECALCIFEROL 25 MCG (1000 IU) TABLET PO SCH (08:38)
[2021-08-06] MEDS ORDERED: VENLAFAXINE HCL ER 75 MG CAP PO STA (09:50)
--- NOTE | 2021-08-06 12:33 | P.PN ---
Progress Note - Text Progress Note Date: 08/06/21 Interval History: Patient was seen wandering the hallways and was directable and agreeable to speak with commercial underwriter in the office. The patient reports she is feeling "okay." She does report a chronic history of suicidal ideation with multiple attempts but is currently denying any suicidal or homicidal ideation, intention, and/or plan. She reports no auditory or visual hallucinations. We discussed at length her trauma history and her defense mechanisms that she employs when confronted. The patient admits to extremes of mood and impulsivity. She endorses a significant history of PTSD and review of her [facility] notes as well as the interview with the patient revealed that she has not trialed Effexor for PTSD which she is agreeable to at this time. She reports no issues regarding her sleep or appetite. Mental Status Exam: General Appearance: Patient appears to be stated age is alert, directable, and cooperative. Behavior: Patient is calmly seated without any agitated behavior. Speech: Patient's speech is fluent and nonpressured. Mood/Affect: Mood is improving mildly, affect is congruent and constricted. Suicidality/Homicidality: Patient denies having any suicidal or homicidal ideation intent or plan. Perceptions: Patient denies any visual hallucinations and denies any auditory hallucinations Though content/process: There is no evidence of any delusional thought content and thought process is linear and goal-directed. 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 Plan: -Patient continues to meet criteria for inpatient psychiatric admission for symptom stabilization and safety. Patient has signed adult voluntary form and medication consent and was placed in patient's chart. -Medications: Increase Abilify to 15 mg by mouth daily with plans to transition her back to a long-acting abilify maintena due to concern for overdose potential. Start Effexor 75 mg by mouth daily for PTSD -When necessary Ativan and Haldol for agitation/aggression. -SW on board for discharge planning. Encouraged the patient to participate in milieu.
[2021-08-06] MEDS: ONDANSETRON 4 MG TAB PO PRN (13:14)
[2021-08-06] MEDS: PYRIDOXINE 50 MG TAB PO SCH (21:05)
[2021-08-06] MEDS: MIRTAZAPINE 15 MG TAB PO SCH (21:05)
[2021-08-07] MEDS: ESTARYLLA PO SCH (08:21)
[2021-08-07] MEDS: CHOLECALCIFEROL 25 MCG (1000 IU) TABLET PO SCH (08:21)
[2021-08-07] MEDS: VENLAFAXINE HCL ER 150 MG CAP PO SCH (08:22)
[2021-08-07] MEDS ORDERED: ARIPiprazole 5 MG TAB PO SCH (09:00)
[2021-08-07] MEDS ORDERED: ARIPiprazole IM SYRINGE 400 MG (NO CHARGE) PHARMACY STOCK IM STA (09:46)
--- NOTE | 2021-08-07 10:04 | P.PN ---
Progress Note - Text Progress Note Date: 08/07/21 Interval History: Patient was seen wandering the hallways and was directable and agreeable to speak with journalists and other writers in the office. The patient reports she is feeling better today. She is open to receiving the MCLEOD of abisatinderfleonela today after significant discussion on her history of overdose as well as her history of nonadherence with treatment. She is currently not reporting any suicidal or homicidal ideation, intention, and/or plan. She reports no auditory or visual hallucinations. She denies any paranoia or other delusions. The patient has been adherent with her medications and is not endorsing any significant side effects. We discussed at length coping skills and worked on cognitive reframing techniques and grounding techniques. Mental Status Exam: General Appearance: Patient appears to be stated age is alert, directable, and cooperative. Behavior: Patient is calmly seated without any agitated behavior. Speech: Patient's speech is fluent and nonpressured. Mood/Affect: Mood is improving mildly, affect is congruent and constricted. Suicidality/Homicidality: Patient denies having any suicidal or homicidal ideation intent or plan. Perceptions: Patient denies any visual hallucinations and denies any auditory hallucinations Though content/process: There is no evidence of any delusional thought content and thought process is linear and goal-directed. Memory and concentration: AOX3, grossly intact for the purposes of this session Judgment and insight: Improving mildly Vital Signs Temp 98.1 F 08/07/21 06:53 Pulse 75 08/07/21 06:53 Resp 14 08/06/21 06:35 BP 109/66 08/07/21 06:53 Pulse Ox 92 L 08/07/21 06:53 Laboratory Results POC Glucose (mg/dL) 112 mg/dL (75-99) H 08/05/21 20:30 POC Glu Diesel Engine Fitter ID Edmund Chase 08/05/21 20:[address] Glu mg/dL 124 08/03/21 06:05 Hemoglobin A1c 6.0 % (0.0-6.0) 08/03/21 06:05 Triglycerides 107.00 mg/dL (0.00-149.00) 08/03/21 06:05 Cholesterol 164.00 mg/dL (0.00-200.00) 08/03/21 06:05 LDL Cholesterol, Calc 85.5 mg/dL (0.0-131.0) 08/03/21 06:05 VLDL Cholesterol, Calc 21.40 mg/dL (5.00-40.00) 08/03/21 06:05 HDL Cholesterol 57.10 mg/dL (40.00-60.00) 08/03/21 06:05 Cholesterol/HDL Ratio 2.87 Ratio 08/03/21 06:05 TSH 3.980 uIU/mL (0.350-5.500) 08/03/21 15:30 Assessment Bipolar disorder, unspecified, depressive episode PTSD 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 Plan: -Patient continues to meet criteria for inpatient psychiatric admission for symptom stabilization and safety. Patient has signed adult voluntary form and medication consent and was placed in patient's chart. -Medications: Increase abilify to 20 mg daily and start abilify maintena 400 mg IM today. Continue Effexor 150 mg daily for depression/anxiety/PTSD Continue remeron 7.5 mg at bedtime for insomnia and appetite. -When necessary Ativan and Haldol for agitation/aggression. -SW on board for discharge planning. Encouraged the patient to participate in milieu.
[2021-08-07] MEDS: MIRTAZAPINE 15 MG TAB PO SCH (21:04)
[2021-08-07] MEDS: PYRIDOXINE 50 MG TAB PO SCH (21:05)
[2021-08-08 06:54] VITALS: BP 108/55; PULSE 67; RESP 16; TEMP 97.6
[2021-08-08] MEDS: VENLAFAXINE HCL ER 150 MG CAP PO SCH (08:10)
[2021-08-08] MEDS: ESTARYLLA PO SCH (08:10)
[2021-08-08] MEDS: CHOLECALCIFEROL 25 MCG (1000 IU) TABLET PO SCH (08:11)
--- NOTE | 2021-08-08 11:30 | P.DS ---
Providers Date of admission: 08/03/21 16:13 Expected date of discharge: 08/08/21 Attending physician: Faisal Zuluaga MD Consults: 08/03/21 16:17 Consult Physician Routine Consulting Provider: Fransico Physician Consult Reason/Comments: MEDICAL MANAGEMENT Do you want consulting provider notified?: Yes Primary care physician: [facility] - Discharge Diagnosis(es) (1) Bipolar depression Current Visit: Yes Status: Acute Priority: High (2) PTSD (post-traumatic stress disorder) Current Visit: Yes Status: Chronic Priority: Medium (3) Cluster B personality disorder in adolescent Current Visit: Yes Status: Chronic Priority: Medium Hospital Course: Admission HPI: Initial psychiatric evaluation was completed by Dr. Benoit on 08/04/2021 who wrote: "Referral source She was admitted to [facility] after she overdose with lithium . She responded to IV fluid with no renal impariement. She was seen at the [facility]> early today aug 04 and was subsequently transferred to Acute psychiatricc unit. She was agreeble to be admitted . Her mother was a psychiatric nurse working on [facility] and had a discussion with the attending psychiatrist Dr. Bozena Zuluaga for assuming his care in next week for further stabilization Chief complaint: medication issue HPI> with a history of bipolar disorder, she was somewhat vague regarding her involvment with the treatment team in [place]. She was aware that whenever she relapsed, he rmood would change to being somewhat silly and impulsive. For a while she seemed to be stable on Long acting mood-stablizer/atypical antipsychotics. eg Ability Maintenna. I have to verify her full medication history. She was on lithium for a while after she switched over form im long acting depot Rx to lithium . She found lithium to be not to her liking; earlier her mother noted her mood swings appeared to have improved on depot injection. Patient is a 22 yo female with a hx of bipolar disorder and overdose in the past and gastritis who presented with EMS after an overdose. In the ED she was found to have a mildly elevated lithium level. Posion controlled was called and recommended IV fluids, gastric lavage, and serial lithium levels. Arrangements were made for admission. She was continued on IV fluids. [place] levels were tract and were downtrending. She continues to do well. She was seen by psychiatry who recommended inpatient admission. Patient was agreeable and she was subsequently discharged to mental health. She was sensitive towards relationship problem. She talked about her steady relationship with her boyfriend. and dubious relatiionship with her mother. However, she did not feel very uncomfortable to have her mother working in the same unit where she was admitted. She was not scared of the lithium toxicity. and seemed to have recovered uneventfully. She agreed she was being impulisve and dicated by her spur of the moment of her mood. Past Psychiatric history; Recentl diagnosis of Bipolar disorder. However, her adolescence years may have marked with her mood swings. She was not prepared to elaborate further." Hospital course: Upon admission to the unit patient was initially noted to be coherent and very engaged in the psychiatric evaluation. Patient was however directable and agreeable to commence treatment. Patient got along well with other patients on the unit and followed unit protocol. Patient was compliant with the medications and denied any side effects throughout hospital course. Patient was started on her home medication of Abilify with plans to transition her back to abilify maintena. Furthermore, Effexor was added to her regimen to address PTSD and Remeron was also added due to concerns for nausea and issues with appetite. Her medications to graduate titrated and the patient was transitioned from Abilify to Abilify maintena. Over the course of the hospitalization, the patient pursued both in individual and milieu therapies. He is actively engaged in psychotherapy sessions with this provider where we discussed dialectical behavioral therapy at length and worked on mental is patient and coping skills. On the day of discharge, the patient is not reporting any suicidal or homicidal ideation, intention, and/or plan. She is denying any auditory or visual hallucinations. She is not reporting any paranoia or other delusions. The patient has been adherent with her medications and is not reporting any significant side effects at this time. The patient was counseled at length on the importance of medication adherence and appropriate follow-up. Furthermore, the patient was counseled on abstaining from all substances including alcohol and marijuana. Prior to discharge, family meeting will be arranged by hospital social worker to answer questions and ensure safety. Mental status exam: General Appearance: Patient appears to be stated age is alert, pleasant, and cooperative. Patient is in no acute distress and has fair hygiene and grooming Behavior: Patient is calmly seated without any agitated behavior. Speech: Patient's speech is fluent and nonpressured. Mood/Affect: Patient reports their mood is "much better", affect is congruent and euthymic to bright. Full range of affect. Suicidality/Homicidality: Patient denies having any suicidal or homicidal ideation intent or plan. Perceptions: Patient denies any auditory or visual hallucinations. Though content/process: There is no evidence of any delusional thought content and thought process is linear and goal-directed. The patient is future oriented. Memory and concentration: AOX3, grossly intact for the purposes of this session. Can spell "WORLD" backwards correctly. Judgment and insight: Improved with guarded prognosis Vital Signs Temp 97.6 F 08/08/21 06:47 Pulse 67 08/08/21 06:47 Resp 16 08/08/21 06:47 BP 108/55 08/08/21 06:47 Pulse Ox 92 L 08/07/21 06:53 Impression: Bipolar disorder, unspecified, depressive episode Posttraumatic stress disorder Cluster B personality disorder Plan: -Continue with discharge today as patient has improved and stabilized psychiatrically and is not currently an imminent threat to herself and/or others. Patient will remain at chronically elevated risk for harm to self and/or others due to her impulsivity and prior attempts at suicide. -Continue medications: Remeron 7.5 mg by mouth at bedtime for appetite/nausea/depression Abilify 20 mg by mouth daily for 2 weeks along with abilify maintena 400 mg IM q28 days which was administered on 08/07/2021 for mood stabilization. Effexor 150 mg by mouth daily for depression/anxiety/PTSD -Patient was counseled on the need for medication compliance and appropriate follow-up at mental health and also primary care for medical issues. Patient verbalized understanding and agreed. -Social work to arrange for and conduct family meeting to ensure safety upon discharge and answer any questions/concerns. Social work also to arrange for patients follow up appointments with [facility] for psychiatric care along with follow up with primary care provider. -Patient counseled on abstaining from recreational drugs and marijuana and alcohol. Was informed/educated on the adverse effects on their physical and mental health. Patient verbally agreed and understood. -Patient was instructed to return to the hospital or seek immediate medical care if their psychiatric or medical symptoms do worsen or reoccur. -Psychoeducation and supportive therapy provided to patient. Risks and benefits of pharmacological treatment versus the risks and benefits of nontreatment weight and discussed. Informed consent discussion held. Common side effects of psychotropics discussed such as, but not limited to headache, GI disturbance, sexual dysfunction, movement disorders, sedation, and orthostatic hypotension. Life threatening and blackbox warnings of prescribed medications also discussed. Potential risks of operating a vehicle or heavy machinery discussed with patient at length. Advised on importance of compliance and a reliable and responsible manner. Patient advised to review FDA consumer labeling of all medications prior to taking. Patient verbalized understanding of potential risks, and agrees with current treatment plan. Patient advised to medically contact physician/emergency personnel if any acute changes in condition occur. Laboratory Results POC Glucose (mg/dL) 112 mg/dL (75-99) H 08/05/21 20:30 POC Glu Operations Intelligence Superintendent ID Edmund Chase 08/05/21 20:[address] Glu mg/dL 124 08/03/21 06:05 Hemoglobin A1c 6.0 % (0.0-6.0) 08/03/21 06:05 Triglycerides 107.00 mg/dL (0.00-149.00) 08/03/21 06:05 Cholesterol 164.00 mg/dL (0.00-200.00) 08/03/21 06:05 LDL Cholesterol, Calc 85.5 mg/dL (0.0-131.0) 08/03/21 06:05 VLDL Cholesterol, Calc 21.40 mg/dL (5.00-40.00) 08/03/21 06:05 HDL Cholesterol 57.10 mg/dL (40.00-60.00) 08/03/21 06:05 Cholesterol/HDL Ratio 2.87 Ratio 08/03/21 06:05 TSH 3.980 uIU/mL (0.350-5.500) 08/03/21 15:30 Allergies Allergy/AdvReac Type Severity Reaction Status Date / Time No Known Allergies Allergy Verified 07/04/21 15:17 Patient Condition at Discharge: Stable Plan - Discharge Summary Discharge Rx Participant: No New Discharge Prescriptions: New Mirtazapine [Remeron] 7.5 mg PO HS 7 Days tab ARIPiprazole [Abilify] 20 mg PO DAILY 7 Days tab Venlafaxine HCl ER [Effexor XR] 150 mg PO DAILY 7 Days ARIPiprazole IM [Abilify Maintena] 400 mg IM QMONTHLY #1 each Continue [place] 28 1 tab PO DAILY Pyridoxine [Vitamin B-6] 100 mg PO HS Cholecalciferol [Vitamin D3 (25 Mcg = 1000 Iu)] 50 mcg PO DAILY Discontinued Omeprazole Magnesium [PriLOSEC] 20 mg PO DAILY PRN PRN Reason: gerd Polyethylene Glycol 3350 [Miralax] 17 gm PO DAILY PRN PRN Reason: Constipation ARIPiprazole [Abilify] 10 mg PO DAILY tab Discharge Medication List [place] 28 1 tab PO DAILY 09/16/19 [History] Cholecalciferol [Vitamin D3 (25 Mcg = 1000 Iu)] 50 mcg PO DAILY 08/02/21 [History] Pyridoxine [Vitamin B-6] 100 mg PO HS 08/02/21 [History] ARIPiprazole IM [Abilify Maintena] 400 mg IM QMONTHLY #1 each 08/08/21 [Rx] ARIPiprazole [Abilify] 20 mg PO DAILY 7 Days tab 08/08/21 [Rx] Mirtazapine [Remeron] 7.5 mg PO HS 7 Days tab 08/08/21 [Rx] Venlafaxine HCl ER [Effexor XR] 150 mg PO DAILY 7 Days 08/08/21 [Rx] Follow up Appointment(s)/Referral(s): [facility] [Outside] - 08/09/21 1:00 pm (08-09-21 at 1:00 with Odilia Powell 08-14-21 at 10:[address] Ingram) [facility] [Primary Care Provider] - 1 Week Patient Instructions/Handouts: Bipolar Disorder (DC), Depression (DC), Help Prevent Suicide (DC), [place] Toxicity (DC), Suicide Prevention (DC) Activity/Diet/Wound Care/Special Instructions: Activity and diet as tolerated. Avoid the use of street drugs and alcohol. Take all medications as prescribed. When you are in need of refills on your medications please contact your medical provider and/or outpatient psychiatrist to have this done. Please go to scheduled outpatient appointment for aftercare treatment. If symptoms return or become worse, call the crisis line at and/or go to the nearest emergency room for evaluation Discharge Disposition: HOME SELF-CARE
== END 2021-08-08 11:55 | disposition home or self-care (01) | DRG 885 ==
LOC: 3MHU 16:13
PROVIDERS: ADMIT Psychiatry & Neurology Psychiatry; ATTEND Psychiatry & Neurology Psychiatry
DX: F31.30 Bipolar disorder, current episode depressed, mild or moderate severity, unspecified (principal); F43.10 Post-traumatic stress disorder, unspecified; F60.89 Other specific personality disorders; T43.592A Poisoning by other antipsychotics and neuroleptics, intentional self-harm, initial encounter; F90.9 Attention-deficit hyperactivity disorder, unspecified type; Z79.899 Other long term (current) drug therapy; Z71.89 Other specified counseling; K29.50 Unspecified chronic gastritis without bleeding
CPT/HCPCS: 80061; 83036; 84443

== ENCOUNTER 2021-11-24 01:49 | Emergency (ER) | payer OTHER ==
[2021-11-24 02:45] VITALS: RESP 18
--- NOTE | 2021-11-24 03:03 | ED ---
Psych HPI - General Chief Complaint: Psychiatric Symptoms Stated Complaint: Mental health Time Seen by Provider: 11/24/21 02:43 Source: patient, RN notes reviewed, old records reviewed Mode of arrival: ambulatory Limitations: no limitations - History of Present Illness Initial Comments: This is a 21-year-old female to the emergency department for evaluation patient's no nerve facility for drug overdose drug abuse psychiatric admission and suicidal thoughts with intentioned and prior suicide attempts. Patient presents today depression suicidal thoughts with plan MD Complaint: suicidal ideation, feels depressed -: unknown Associated Psychiatric Symptoms: depression, suicidal ideation, racing thoughts History of same: Yes Quality: constant, getting worse Improves With: none Worsens With: none Context: significant life stressor Associated Symptoms: denies other symptoms Treatments Prior to Arrival: placed on mental health hold If Self Harm: admits thoughts of self harm, has plan - Related Data Home Medications Medication Instructions Recorded Confirmed [place]-Li[place] 28 1 tab PO DAILY 09/16/19 08/03/21 Cholecalciferol [Vitamin D3 (25 50 mcg PO DAILY 08/02/21 08/03/21 Mcg = 1000 Iu)] Pyridoxine [Vitamin B-6] 100 mg PO HS 08/02/21 08/03/21 Previous Rx's Medication Instructions Recorded ARIPiprazole IM [Abilify Maintena] 400 mg IM QMONTHLY #1 each 08/08/21 ARIPiprazole [Abilify] 20 mg PO DAILY 7 Days tab 08/08/21 Mirtazapine [Remeron] 7.5 mg PO HS 7 Days tab 08/08/21 Venlafaxine HCl ER [Effexor XR] 150 mg PO DAILY 7 Days 08/08/21 Allergies Allergy/AdvReac Type Severity Reaction Status Date / Time No Known Allergies Allergy Verified 11/24/21 02:45 Review of Systems ROS Statement: Those systems with pertinent positive or pertinent negative responses have been documented in the HPI. ROS Other: All systems not noted in ROS Statement are negative. Past Medical History Past Medical History: No Reported History Additional Past Medical History / Comment(s): bipolar diosrder History of Any Multi-Drug Resistant Organisms: None Reported Past Surgical History: No Surgical Hx Reported Past Anesthesia/Blood Transfusion Reactions: No Reported Reaction Past Psychological History: ADD/ADHD, Bipolar Smoking Status: Never smoker Past Alcohol Use History: None Reported, Occasional Past Drug Use History: Marijuana - Past Family History Mother History Unknown: Yes Family Medical History: No Reported History General Exam Limitations: no limitations General appearance: alert, in no apparent distress Head exam: Present: atraumatic, normocephalic, normal inspection Eye exam: Present: normal appearance, PERRL, EOMI. Absent: scleral icterus, conjunctival injection, periorbital swelling ENT exam: Present: normal exam, mucous membranes moist Neck exam: Present: normal inspection. Absent: tenderness, meningismus, lymphadenopathy Respiratory exam: Present: normal lung sounds bilaterally. Absent: respiratory distress, wheezes, rales, rhonchi, stridor Cardiovascular Exam: Present: regular rate, normal rhythm, normal heart sounds. Absent: systolic murmur, diastolic murmur, rubs, gallop, clicks GI/Abdominal exam: Present: soft, normal bowel sounds. Absent: distended, tenderness, guarding, rebound, rigid Extremities exam: Present: normal inspection, full ROM, normal capillary refill. Absent: tenderness, pedal edema, joint swelling, calf tenderness Back exam: Present: normal inspection Neurological exam: Present: alert, oriented X3, CN II-XII intact Psychiatric exam: Present: normal affect, normal mood Skin exam: Present: warm, dry, intact, normal color. Absent: rash Course Vital Signs 11/24/21 11/24/21 11/24/21 02:39 03:42 07:38 Temperature 98.2 F 98.6 F 98.2 F Pulse Rate 72 63 74 Respiratory 18 18 18 Rate Blood Pressure 113/70 93/59 104/69 O2 Sat by Pulse 98 99 99 Oximetry - Reevaluation(s) Reevaluation #1: 11/24/21 06:26 Medical record is reviewed 11/24/21 06:26 Medically clear for psychiatric evaluation Medical Decision Making - Medical Decision Making 21 female today for evaluation of suicidal intent, history of overdose and feels like she will do the same today with lithium. Patient denies taking a suicide attempt lithium levels are normal she can be transferred for inpatient psychiatric management - Lab Data Result diagrams: 11/24/21 07:27 11/24/21 07:27 Lab Results 11/24/21 11/24/21 11/24/21 Range/Units 03:17 03:17 07:21 WBC (3.8-10.6) k/uL RBC (3.80-5.40) m/uL Hgb (11.4-16.0) gm/dL Hct (34.0-46.0) % MCV (80.0-100.0) fL MCH (25.0-35.0) pg MCHC (31.0-37.0) g/dL RDW (11.5-15.5) % Plt Count (150-450) k/uL MPV Neutrophils % % Lymphocytes % % Monocytes % % Eosinophils % % Basophils % % Neutrophils # (1.3-7.7) k/uL Lymphocytes # (1.0-4.8) k/uL Monocytes # (0-1.0) k/uL Eosinophils # (0-0.7) k/uL Basophils # (0-0.2) k/uL Sodium (137-145) mmol/L Potassium (3.5-5.1) mmol/L Chloride (98-107) mmol/L Carbon Dioxide (22-30) mmol/L Anion Gap mmol/L BUN (7-17) mg/dL Creatinine (0.52-1.04) mg/dL Est GFR (CKD-EPI)AfAm (>60 ml/min/1.73 sqM) Est GFR (CKD-EPI)NonAf (>60 ml/min/1.73 sqM) Glucose (74-99) mg/dL Calcium (8.4-10.2) mg/dL Urine Color Yellow Urine Appearance Cloudy H (Clear) Urine pH 7.0 (5.0-8.0) Ur Specific [place] 1.019 (1.001-1.035) Urine Protein Negative (Negative) Urine Glucose (UA) Negative (Negative) Urine Ketones Negative (Negative) Urine Blood Negative (Negative) Urine Nitrite Negative (Negative) Urine Bilirubin Negative (Negative) Urine Urobilinogen <2.0 (<2.0) mg/dL Ur Leukocyte Esterase Negative (Negative) Urine RBC 2 (0-5) /hpf Urine WBC 2 (0-5) /hpf Ur Squamous Epith Cells 1 (0-4) /hpf Amorphous Sediment Rare H (None) /hpf Urine Mucus Few H (None) /hpf Urine HCG, Qual Not Detected (Not Detectd) Salicylates mg/dL Urine Opiates Screen Not Detected (NotDetected) Ur Oxycodone Screen Not Detected (NotDetected) Urine Methadone Screen Not Detected (NotDetected) Ur Propoxyphene Screen Not Detected (NotDetected) Acetaminophen ug/mL Ur Barbiturates Screen Not Detected (NotDetected) U Tricyclic Antidepress Not Detected (NotDetected) Ur Phencyclidine Scrn Not Detected (NotDetected) Ur Amphetamines Screen Not Detected (NotDetected) U Methamphetamines Scrn Detected H (NotDetected) U Benzodiazepines Scrn Not Detected (NotDetected) [place] mmol/L Urine Cocaine Screen Not Detected (NotDetected) U Marijuana (THC) Screen Not Detected (NotDetected) Serum Alcohol mg/dL Coronavirus (PCR) Not Detected (Not Detectd) 11/24/21 11/24/21 Range/Units 07:27 07:27 WBC 7.0 (3.8-10.6) k/uL RBC 4.37 (3.80-5.40) m/uL Hgb 12.2 (11.4-16.0) gm/dL Hct 38.7 (34.0-46.0) % MCV 88.4 (80.0-100.0) fL MCH 28.0 (25.0-35.0) pg MCHC 31.6 (31.0-37.0) g/dL RDW 13.9 (11.5-15.5) % Plt Count 251 (150-450) k/uL MPV 7.8 Neutrophils % 41 % Lymphocytes % 47 % Monocytes % 6 % Eosinophils % 3 % Basophils % 1 % Neutrophils # 2.9 (1.3-7.7) k/uL Lymphocytes # 3.3 (1.0-4.8) k/uL Monocytes # 0.4 (0-1.0) k/uL Eosinophils # 0.2 (0-0.7) k/uL Basophils # 0.0 (0-0.2) k/uL Sodium 138 (137-145) mmol/L Potassium 4.6 (3.5-5.1) mmol/L Chloride 106 (98-107) mmol/L Carbon Dioxide 28 (22-30) mmol/L Anion Gap 4 mmol/L BUN 11 (7-17) mg/dL Creatinine 0.80 (0.52-1.04) mg/dL Est GFR (CKD-EPI)AfAm >90 (>60 ml/min/1.73 sqM) Est GFR (CKD-EPI)NonAf >90 (>60 ml/min/1.73 sqM) Glucose 105 H (74-99) mg/dL Calcium 9.3 (8.4-10.2) mg/dL Urine Color Urine Appearance (Clear) Urine pH (5.0-8.0) Ur Specific [place] (1.001-1.035) Urine Protein (Negative) Urine Glucose (UA) (Negative) Urine Ketones (Negative) Urine Blood (Negative) Urine Nitrite (Negative) Urine Bilirubin (Negative) Urine Urobilinogen (<2.0) mg/dL Ur Leukocyte Esterase (Negative) Urine RBC (0-5) /hpf Urine WBC (0-5) /hpf Ur Squamous Epith Cells (0-4) /hpf Amorphous Sediment (None) /hpf Urine Mucus (None) /hpf Urine HCG, Qual (Not Detectd) Salicylates <1.0 mg/dL Urine Opiates Screen (NotDetected) Ur Oxycodone Screen (NotDetected) Urine Methadone Screen (NotDetected) Ur Propoxyphene Screen (NotDetected) Acetaminophen <10.0 ug/mL Ur Barbiturates Screen (NotDetected) U Tricyclic Antidepress (NotDetected) Ur Phencyclidine Scrn (NotDetected) Ur Amphetamines Screen (NotDetected) U Methamphetamines Scrn (NotDetected) U Benzodiazepines Scrn (NotDetected) [place] 0.6 mmol/L Urine Cocaine Screen (NotDetected) U Marijuana (THC) Screen (NotDetected) Serum Alcohol <10 mg/dL Coronavirus (PCR) (Not Detectd) Disposition Clinical Impression: Drug overdose, PTSD (post-traumatic stress disorder), Suicidal ideation, Depression, Acute anxiety Disposition: TRANSFER TO PSYCH HOSP/UNIT Condition: Fair Is patient prescribed a controlled substance at d/c from ED?: No Referrals: [facility] [Primary Care Provider] - 1-2 days
[2021-11-24 03:31] LABS: Amorphous Sediment,Urine Rare /hpf; Appearance,Urine Cloudy (Clear); Bilirubin,Urine Negative (Negative); Blood,Urine Negative (Negative); Color,Urine Yellow; Glucose,Urine (UA) Negative (Negative); Ketones,Urine Negative (Negative); Leukocyte Esterase,Urine Negative (Negative); Mucus,Urine Few /hpf; Nitrite,Urine Negative (Negative); Protein,Urine Negative (Negative); RBC,Urine 2 /hpf (0-5); Specific Gravity,Urine 1.019 (1.001-1.035); Squamous Epithelial Cell,Urine 1 /hpf (0-4); Urobilinogen,Urine <2.0 mg/dL (<2.0); WBC,Urine 2 /hpf (0-5)
[2021-11-24 03:42] LABS: Cocaine Screen,Urine Not Detected (NotDetected); Phencyclidine Screen,Urine Not Detected (NotDetected)
[2021-11-24 03:43] LABS: Amphetamine Screen,Urine Not Detected (NotDetected); Barbiturate Screen,Urine Not Detected (NotDetected); Benzodiazepines Screen,Urine Not Detected (NotDetected); Methadone Screen, Urine Not Detected (NotDetected); Opiate Screen,Urine Not Detected (NotDetected); Oxycodone Screen, Urine Not Detected (NotDetected); Tricyclic Antidepressant,Urine Not Detected (NotDetected); Urn Cannabinoid Scrn Not Detected (NotDetected)
[2021-11-24 07:40] VITALS: BP 104/69; PULSE 74; TEMP 98.2
[2021-11-24 07:48] LABS: Acetaminophen <10.0 ug/mL; African American GFR (CKD) >90 (>60 ml/min/1.73 sqM); Alcohol <10 mg/dL; Anion Gap 4 mmol/L; Blood Urea Nitrogen 11 mg/dL (7-17); Calcium 9.3 mg/dL (8.4-10.2); Carbon Dioxide 28 mmol/L (22-30); Chloride 106 mmol/L (98-107); Glucose 105 mg/dL (74-99); Non-African American GFR(CKD) >90 (>60 ml/min/1.73 sqM); Potassium 4.6 mmol/L (3.5-5.1); Salicylate <1.0 mg/dL; Sodium 138 mmol/L (137-145)
[2021-11-24 08:00] LABS: Lithium 0.6 mmol/L
[2021-11-24 08:01] LABS: Basophils % (A) 1 %; Eosinophils # (A) 0.2 k/uL (0-0.7); Eosinophils % (A) 3 %; HCT 38.7 % (34.0-46.0); HGB 12.2 gm/dL (11.4-16.0); Lymphocytes # (A) 3.3 k/uL (1.0-4.8); Lymphocytes % (A) 47 %; MCHC 31.6 g/dL (31.0-37.0); MCV 88.4 fL (80.0-100.0); Mean Platelet Volume 7.8; Monocytes # (A) 0.4 k/uL (0-1.0); Monocytes % (A) 6 %; Neutrophils # (A) 2.9 k/uL (1.3-7.7); Neutrophils % (A) 41 %; Platelet Count 251 k/uL (150-450); RBC 4.37 m/uL (3.80-5.40); RDW 13.9 % (11.5-15.5)
[2021-11-27 07:32] LABS: C. trachomatis,PCR Negative (Neg,Equiv); Chlamydia trachomatis Source Urine; N. gonorrhoeae,PCR Negative (Neg,Equiv); Neisseria Source Urine
== END 2021-11-24 13:58 ==
LOC: EC 01:49
DX: T65.91XA Toxic effect of unspecified substance, accidental (unintentional), initial encounter (principal); F43.10 Post-traumatic stress disorder, unspecified; R45.851 Suicidal ideations; Z20.822 Contact with and (suspected) exposure to COVID-19
CPT/HCPCS: 82075; 36415; 80048; 80178; 85025; 81001; 81025; 87491; 87591; 80306; 80143; 87635; 80179; 99284; G0480; 80320